=== PATIENT | male | born 1955 | race Caucasian/White ===

== ENCOUNTER 2024-01-01 06:05 | Outpatient (RCR) | payer OTHER, SELFPAY | END 2024-01-01 23:59 | disposition home or self-care (01) | LOC: RPT 06:05 | PROVIDERS: ATTENDING PHYSICIAN Physician Assistant Surgical; FAMILY PHYSICIAN Family Medicine | DX: S42.231D 3-part fracture of surgical neck of right humerus, subsequent encounter for fracture with routine healing (principal) | CPT/HCPCS: 97110; 97140; 97162 ==

== ENCOUNTER 2024-01-29 09:24 | Outpatient (RCR) | payer OTHER, SELFPAY | END 2024-01-29 23:59 | disposition home or self-care (01) | LOC: RPT 09:24 | PROVIDERS: ATTENDING PHYSICIAN Physician Assistant Surgical; FAMILY PHYSICIAN Family Medicine | DX: S42.231D 3-part fracture of surgical neck of right humerus, subsequent encounter for fracture with routine healing (principal); Z73.6 Limitation of activities due to disability; M62.81 Muscle weakness (generalized) | CPT/HCPCS: 97010; 97110; 97140 ==

== ENCOUNTER 2024-03-04 06:20 | Outpatient (RCR) | payer OTHER, SELFPAY | END 2024-03-04 23:59 | disposition home or self-care (01) | LOC: RPT 06:20 | PROVIDERS: ATTENDING PHYSICIAN Physician Assistant Surgical; FAMILY PHYSICIAN Family Medicine | DX: S42.231D 3-part fracture of surgical neck of right humerus, subsequent encounter for fracture with routine healing (principal); Z73.6 Limitation of activities due to disability; M62.81 Muscle weakness (generalized) | CPT/HCPCS: 97010; 97110; 97140 ==

== ENCOUNTER 2024-07-28 15:31 | Inpatient (IN) | payer OTHER, SELFPAY ==
[2024-07-28] VITALS (14 sets, daily range): BP systolic 90–137; BP diastolic 46–102; BMI 37.6
[2024-07-28] MEDS: LOPRESSOR 5 MG IV (11:52)
[2024-07-28 11:56] LABS: % Basophils 0.4 % (0-2); % Eosinophils 1.4 % (0-6); % Immature Granulocytes 0.6 % (0-0.5); % Lymphocytes 19.1 % (20.5-51.1); % Monocytes 13.7 % (1.7-9.3); % Neutrophils 64.8 % (42.2-75.2); Absolute Basophils 0.1 10^3/uL (0-0.2); Absolute Eosinophils 0.2 10^3/uL (0-0.7); Absolute Immature Granulocytes 0.1 10^3/uL (0-0.05); Absolute Lymphocytes 2.3 10^3/uL (1.2-3.4); Absolute Monocytes 1.7 10^3/uL (0.1-0.6); Absolute Neutrophils 7.8 10^3/uL (1.4-6.5); Hematocrit 47.3 % (39.0-52.0); Hemoglobin 16.3 g/dL (13.0-18.0); Mean Corp Hgb Conc. 34.5 g/dL (33.0-37.0); Mean Corpuscular Hgb 29.4 pg (27.0-31.0); Mean Corpuscular Volume 85.2 fL (80.0-94.0); Mean Platelet Volume 10.2 fL (7.4-10.4); Nucleated Red Blood Cells % 0 % (-); Platelet Count 212 10^3/uL (130-400); Red Blood Cell Count 5.55 10^6/uL (4.70-6.10); Red Cell Dist. Width 13.8 % (11.5-14.5)
[2024-07-28 12:07] LABS: ALT (SGPT) 30 U/L (0-50); AST (SGOT) 19 U/L (17-59); Albumin 3.9 g/dl (3.5-5.0); Alkaline Phosphatase 88 U/L (38-126); Blood Urea Nitrogen 18 mg/dl (9-20); Calcium 9.2 mg/dl (8.4-10.2); Carbon Dioxide 26 mmol/L (22-30); Chloride 104 mmol/L (98-107); Estimated Creatinine Clearance 91 ml/min; Glucose 119 mg/dl (70-99); Potassium 4.7 mmol/L (3.5-5.1); Sodium 137 mmol/L (135-145); Total Bilirubin 1.2 mg/dl (0.2-1.3); Total Protein 6.7 g/dl (6.3-8.2); eGFR > 60.00
[2024-07-28 12:27] LABS: D-Dimer 0.48 ug/mlFEU (0.00-0.50)
[2024-07-28 12:44] LABS: Troponin I 0.098 ng/ml
[2024-07-28] MEDS: CARDIZEM 20 MG IV (13:00)
[2024-07-28 13:24] LABS: Magnesium 2.1 mg/dl (1.6-2.3)
[2024-07-28] MEDS: CARDIZEM 125 IV (13:33)
--- NOTE | 2024-07-28 13:41 | ED.GENMED ---
History of Present Illness
General
Chief Complaint: Heart Rate Problem
Source: patient
Exam Limitations: none
Time Seen by Provider: 07/28/24 11:45
Nursing documentation reviewed up to this point in time: agreed with
History of Present Illness
History of Present Illness:
Pt presents to ED from primary care physician's office due to increased HR. Pt states that he was being evaluated at PCP office due to fatigue over the past 3 days. Prior to onset of symptoms, pt reports brief right sided CP after moving salt down
to his basement, along with sob. Since then sob and fatigue have persisted. Denies dizziness/palpitations/nausea/diaphoresis. Denies recent travel or surgery. Pt is an ex smoker and drinks alcohol socially. Of note, pt reports URI symptoms 3 weeks
which required abx tx with resolution.
Past History
Past History
ED Past Medical History: GERD and Other (Eczema)
ED Past Surgical History: Other (Gynecomastia surgery)
Social History
Tobacco: Smoker
Alcohol: Occasional
Drug: None
Personal: Single
Living: other (With girlfriend)
Review of Systems
Review of Systems
Allergies reviewed?: Yes
Constitutional: Reports fatigue
EENT: Reports no symptoms
Respiratory: Reports trouble breathing
Cardiac: Reports no symptoms
ABD/GI: Reports no symptoms
Musculoskeletal: Reports no symptoms
Skin: Reports no symptoms
Neurological: Reports no symptoms
Phy Exam
Physical Exam
Physical Exam:
General: well appearing male, in no acute distress. afebrile. tachycardic.
Heent: nc/at. eomi
Lungs: cta.
Heart: tachycardic. no mumur.
Abd: soft and nontender
Neuro: aao x 3. no focal neurological deficit.
Ext: no edema
Psych: pleasant and cooperative
Scores
[id number] Score for Afib Stroke Risk
Age in Years (65=0, 65-74=1, >/=75=2): 65-74
Sex (Female=+1): Male
Congestive Heart Failure History (Yes=+1): No
Hypertension History (Yes=+1): No
Stroke/TIA/Thromboembolism History (Yes=+2): No
Vascular Disease History (Yes=+1): No
Diabetes Mellitus (Yes=+1): No
Score: 1
Anticoagulation Recommendations: Consider anticoagulation (as validated in nonvalvular fib)
Course
Orders/Labs/Results
Orders:
Orders
07/28/24
Electrocardiogram (*1) Stat
Comment: DONE EMR
07/28/24 11:13
Electrocardiogram (*1) Urgent
Reason for Study: Chest Pain
EKG- Treatment ONCE
07/28/24 11:43
Complete Blood Count/With Diff Urgent
Comprehensive Metabolic Panel Urgent
Magnesium Urgent
Comment: ADD
TSH Reflex To Free T4 Urgent
Comment: ADD
07/28/24 11:50
Metoprolol [Lopressor] 5 mg .ROUTE .STK-MED ONE
07/28/24 11:52
Metoprolol [Lopressor] 5 mg IV NOW STA
07/28/24 11:59
Add On- LAB Urgent
Tests Added?: magnesium, TSH to reflex Free T4
07/28/24 12:03
D-Dimer Urgent
NT-proBNP Urgent
Comment: ADD ON
PTT Urgent
Comment: ADD ON
Troponin I Urgent
07/28/24 12:37
Diltiazem HCl [Cardizem] 20 mg IV NOW STA
07/28/24 12:45
Diltiazem 125 mg/125 ml Nss [Cardizem] 125 mg in 125 ml IV PER PROTOCOL
Initial dose in mg/hr, then titrate:: 5
Titrate to keep:: Heart rate 80-100 bpm
Titrate by mg/hr:: 5 mg/hr
Frequency of titrations (minutes):: 15
Maximum dose in mg/hr:: 15
07/28/24 14:14
Heparin 4,000 units IV NOW STA
Nursing to Place Non Medication Order As Directed
Physician Order: PTT 6 hours after initial start of Heparin infusion
Above order entered?: Yes
07/28/24 14:15
Heparin [id number] Units/250 ml 25,000 units in 250 ml IV PER PROTOCOL
Weight to be used for heparin protocol in kilograms (kg):: 119
Protocol:: Cardiac Tx/Acute Coronary
PTT Goal Range to be used:: PTT 73 to 111 seconds
Order type:: Initial
INITIAL Infusion Dose (UNITS/KG/hr) & then follow protocol:: 12 units/kg/hr
Infusion Dose in UNITS/hr & then follow protocol (UNITS/hr):: 1,000
INFUSION RATE in mL/hr & then follow protocol (mL/hr):: 10
PTT less than or equal to 64 seconds:: Increase rate by 200 units/hr (+ 2 mL/hr)
PTT 64.1 to 72.9 seconds:: Increase rate by 100 units/hr (+ 1 mL/hr)
PTT 73 to 111 seconds:: Target Range. No change in rate.
PTT 111.1 to 130.9 seconds:: Decrease rate by 100 units/hr (- 1 mL/hr)
PTT 131 to 199.9 seconds:: HOLD for 1 hr. Then decrease rate by 200 units/hr (- 2 mL/hr)
PTT greater than or equal to 200 seconds:: HOLD for 2 hrs & Notify Provider. Then decrease by 200 units/hr (-
2 mL/hr)
Lab follow-up:: Each change, PTT q6h until 2 consecutive are therapeutic. Then PTT
daily.
07/28/24 14:29
Add On- LAB Stat
Tests Added?: PTT
07/28/24 14:57
Admit/Transfer Patient As Directed
Co-Sign Provider:
Level of Care: Inpatient admission
Assign to:: IVU
Physician / Group: tiffanie
Diagnosis: new onset atrial fib
Reason for Hospitalization: new onset atrial fib
NSTEMI
Expected length of stay greater than two midnights?: Yes
ELOS- Estimated Length of Stay in days: 3
I certify the patient meets the requirements for IP care: Yes
PRN Pain Medication Management As Directed
May give lesser potent ordered pain med per pt: Yes
preference::
Protocol:: Medication orders for pain may be administered in a
manner that supports deferring to patient preference
when the pt is:
- Requesting an ordered lesser potent pain medication.
Least to most potent pain medications are defined
as: acetaminophen < NSAID < tramadol < opioids
(morphine, oxycodone, hydromorphone).
- Requesting a lesser dose of the same medication IF
ORDERED.
- Requesting a less intrusive route of administration
if both routes are prescribed by the provider (PO <
IV).
07/28/24 14:58
Code Status As Directed
Resuscitation Status: Full Code
Abnormal Lab Results
07/28/24 07/28/24
11:43 12:03
WBC 12.0 H 10^3/uL
(4.8-10.8)
Abs Immat Gran (auto) 0.1 H 10^3/uL
(0-0.05)
Absolute Neuts (auto) 7.8 H 10^3/uL
(1.4-6.5)
Absolute Monos (auto) 1.7 H 10^3/uL
(0.1-0.6)
Immature Gran % 0.6 H %
(0-0.5)
Lymphocytes % 19.1 L %
(20.5-51.1)
Monocytes % 13.7 H %
(1.7-9.3)
Glucose 119 H mg/dl
(70-99)
Troponin I 0.098 H* ng/ml
07/28/24 11:43
07/28/24 11:43
Vital Signs
Initial and Last Documented VS:
Initial Vital Signs
Temp Pulse Resp BP Pulse Ox
97.9 F 160 20 137/102 99
07/28/24 11:15 07/28/24 11:15 07/28/24 11:15 07/28/24 11:15 07/28/24 11:15
Last Documented Vital Signs
Temp Pulse Resp BP Pulse Ox
97.9 F 84 23 101/69 94
07/28/24 11:15 07/28/24 15:00 07/28/24 15:00 07/28/24 15:00 07/28/24 15:00
MDM/Problems Addressed
MDM/Problems Addressed:
Pt presented to ED initially in SVT. As patient was asymptomatic with narrow complex tachycardia, decision made to initially treat patient with Lopressor 5 mg IV, which did not affect his heart rate. Patient subsequently given Cardizem bolus and
started on infusion, with improvement in heart rate. Subsequent EKG reveals rate controlled atrial fibrillation. Mildly elevated troponin noted.
Patient evaluated by cardiology, Dr. Crook. Decision made to admit patient to hospitalist service on heparin protocol, along with Cardizem infusion, for further evaluation and treatment.
Critical care statement: A total of 40 minutes of critical care time was provided for this patient. This includes management of unstable vital signs, evaluation of the patient at bedside, reviewing the patient's pertinent medical records, discussion
with consultants, review of old EKGs and review of pertinent medical records. This time with separate from time utilized to perform the aforementioned documented procedures
*Critical Care Note
Total Time (30-74mins, 75-104mins- exclusive of procedures): 40 min
ED Attending Note
-
Portions of this chart may have been created with voice recognition software.� Occasional wrong word or��sound alike� substitutions may have occurred due to the inherent limitations of voice recognition software.
Discharge Plan
Departure
Patient Disposition: Admit
Date of Disposition: 07/28/24
Time of Disposition: 13:59
Admit to: Telemetry
Presentation/result/management discussed w/ accepting MD/DO: Hospitalist
Discharge Problem:
New onset atrial fibrillation, Abnormal cardiac enzyme level
Interventions
Interventions:
*Risk Screen - Suicide Last Done: 07/28/24 11:15
*General Assessment Last Done: 07/28/24 11:15
*Neglect/Abuse Screening Last Done: 07/28/24 11:15
*ED- Fall Risk Assessment Last Done: 07/28/24 11:39
*ED COVID-19 Vaccine History Last Done: 07/28/24 11:39
--- NOTE | 2024-07-28 14:33 | HPS.HSE ---
Family Physician
-
Family Physician: Nasim Card
Chief Complaint
-
Week lightheaded
History of Present Illness
69-year-old with past medical history for hypertension presented to us with generalized weakness for past few days. Patient stated he was dealing with upper respiratory infection since May. Recently was put on steroids, Mucinex and steroids.
He finished a course of steroids 3 days ago. Patient feels better with upper respiratory infection. For past few days, he was noted to have lightheaded and weak, patient noted to have a chest pain on Sunday morning when he was moving salt bag
and yesterday also he had chest pain while eating breakfast. today he was lightheaded. he stated some sob and felt like his heart was racing. he went to PCP today morning for evaluation and noted to have heart rate of 160. Patient denied any
abdominal pain, nausea, vomiting or diarrhea. Patient denied dysuria hematuria.
Upon arrival he was noted in A-fib he was also noted to have, elevated troponin. Patient was initiated on Cardizem and heparin drip admitted for further management.
Medical History
Past Medical History
Past Medical History: Reports Other
Additional Past Medical History:
Psoriasis
Cavernous sinus thrombosis
Hypertension
Acid reflux
Chronic calculus cholecystitis
Past Surgical History: Reports None
Additional Past Surgical History:
Lap soni
Social History
Tobacco: Former Smoker
Alcohol: Daily
Drug: None
Living: With Family
Family History
Family History: Not pertinent
Allergies / Home Medications
Allergies reflects when Allergies were last updated in [facility].
Home Medications with original date entered in [facility]
Allergy/Medication List:
Allergies
Allergy/AdvReac Type Severity Reaction Status Date / Time
codeine Allergy Nausea/not Verified 07/28/24 11:18
true
allergy
just a
little sick
Home Medications
albuterol sulfate 90 mcg/actuation aerosol inhaler 2 puff inhalation Q4HPRN PRN cough, shortness of breath 07/28/24
amlodipine 5 mg tablet 5 mg PO DAILY Blood Pressure 07/28/24
Review of Systems
-
Constitutional: Reports Fatigue
EENT: Reports No Symptoms
Respiratory: Reports Trouble Breathing
Cardiac: Reports Chest Pain and Palpitations
Abdomen/GI: Reports No Symptoms
: Reports No Symptoms
Musculoskeletal: Reports No Symptoms
Skin: Reports No Symptoms
Neurological: Reports Headache and Weakness
Endocrine: Reports No Symptoms
Hematologic/Lymphatic: Reports No Symptoms
Psych: Reports No Symptoms
Physical Exam
Vital Signs
Vital Signs
Temp Pulse Resp BP Pulse Ox
97.9 F 83 20 116/99 98
07/28/24 11:15 07/28/24 14:00 07/28/24 11:30 07/28/24 13:00 07/28/24 11:22
Physical Exam
General: Well Developed, Well Nourished and No Apparent Distress
HEENT: NormoCephalic, Moist mucous membranes and Atraumatic
Respiratory: Clear
Cardiac: Irregular Rhythm; No Murmur or Rub
GI: Soft, Non Tender, Non Distended and Normal Bowel Sounds; No Organomegaly
Rectal: Deferred by Provider
Musculoskeletal: No Clubbing, No Cyanosis and No Edema
Skin: No Rash
Neuro: AO x 3 and Nonfocal/grossly intact
Psych: Calm
Laboratory Results
-
07/28/24 11:43
07/28/24 11:43
Laboratory Results
Total Bilirubin 1.2 mg/dl (0.2-1.3) 07/28/24 11:43
AST 19 U/L (17-59) 07/28/24 11:43
ALT 30 U/L (0-50) 07/28/24 11:43
Alkaline Phosphatase 88 U/L (38-126) 07/28/24 11:43
Troponin I 0.098 ng/ml H* 07/28/24 12:03
Data Reviewed
-
Lab Data: Labs Reviewed by me
Impression/Plan
-
# New onset A-fib
-On Cardizem drip
-Cardiology consult
-Heparin drip
# Leukocytosis likely stress reaction
-WBC 12.0, likely from steroids
-Patient is afebrile
-Continue to monitor
# Elevated Trop likely NSTEMI
-Trop 0.098
-Keep patient n.p.o. after midnight for possible cardiac cath in morning
-Trend Trope
-EKG on arrival A-fib acute ABG with supraventricular tachycardia, nonspecific ST and T wave abnormality,
# Essential hypertension
-Norvasc continued with hold parameters
# DVT prophylaxis
-On heparin drip
# CODE STATUS
-Full code
[2024-07-28 14:54] LABS: APTT 33.5 Sec (23.4-35.0)
[2024-07-28] MEDS: HEPARIN 4000 UNITS IV (14:56)
[2024-07-28] MEDS: HEPARIN 25000 UNITS/250 ML IV (14:57)
--- NOTE | 2024-07-28 15:46 | CON.CAR ---
Addendum entered and electronically signed by Javier Crook MD 07/28/24 16:51:
I saw and examined the patient.
The AIRLINE RADIO OPERATOR or PA's note was reviewed and I agree with the note.
Comment: General: Well developed, well nourished in NAD.
Neck: Supple, no JVD, HJR, carotids +2 B/L, no bruits bilaterally.
Heart: Non displaced PMI, Irregular, no murmurs, No S3, S4, no rubs.
Lungs: Clear to auscultation bilaterally, no wheeze, rhonchi, rubs bilaterally,
normal expiratory phase.
Abdomen: Normal bowel sounds, soft, non-tender, non-distended.
Extremities: No clubbing, cyanosis or edema bilaterally.
Neuro: Grossly nonfocal, awake, alert and oriented x3.
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 He had a right-sided chest discomfort and
increasing fatigue over the past few days. He noted discomfort after he had lifted bags of salt 2 days ago. He came to the ER because of progressive fatigue. He is found to be in a rapid tachycardia which may have been an atrial tachycardia. He
is currently in A-fib on IV Cardizem. Cardiology consulted for A-fib and also elevated troponin of 0.098.
Will continue IV heparin. Will consider JW/cardioversion if troponins do not go up further. Given tobacco abuse if troponins remain elevated may need to consider catheterization prior to JW/cardioversion. Check echocardiogram. Discussed in
detail with patient and in room as well as ER doctors. He will need workup for sleep apnea and cut alcohol abuse given they are associated with A-fib. He will need Eliquis prior to discharge.
Original Note:
Consultation
Consultation Request
Date/Time Consultation Requested: 07/28/24
Date/Time Consultation Performed: 07/28/24
Requesting Provider: Dr. Alexander
Performing Provider: Dr. Crook
Reason for Consultation: Chest pressure, elevated Troponin, newly diagnosed Afib with RVR
Medical History
-
History of Present Illness:
Patient came to ER today with complaints of a right sided chest pressure and was found to be in new A-fib prompting admission and cardiology consultation. Patient recalls that on Sunday he was lifting bags of sidewalk salt and started with a
fingertip sized area of chest pain on the right side, he had never had pain like this before. The pain improved, but recurred the following day while at rest. Overall he felt unusually fatigued and had SMITH walking around his home that was new and
different. No edema or bloating. No palpitations. In the ER patient was found to be in A-fib with RVR which is a new diagnosis for him. He has been on warfarin before, but this was for cavernous sinus thrombosis that was discovered when he
presented with a 6th nerve palsy in 2019. At that time they felt that possibly a broken tooth had caused the thrombosis. Patient was on warfarin for at least a year, but no longer taking OAC. No adverse bleeding events while on warfarin.
PMH:
Recent URI illness treated with antibiotics and prednisone by PCP
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
Presenting symptoms were diplopia
Possible broken tooth as the cause for thrombosis
Previously tolerated warfarin OAC in the setting of cavernous sinus thrombosis 2018
HTN
Daily EtOH consumption
Past Medical History
Past Medical History: Other (in HPI)
Past Surgical History: Cholecystectomy and Other (gynecomastia surgery)
Social History
Tobacco: Former Smoker (quit smoking 1 ppd 6 weeks ago)
Alcohol: Daily
Drug: None
Personal:
Living: With Family
Family History
Family History: Other (no FH of Afib)
Allergies / Home Medications
Allergy/AdvReac Type Severity Reaction Status Date / Time
codeine Allergy Nausea/not Verified 07/28/24 11:18
true
allergy
just a
little sick
�Medication �Instructions �Recorded �Confirmed �Type
albuterol sulfate 90 mcg/actuation 2 puff inhalation Q4HPRN PRN 07/28/24 07/28/24 History
aerosol inhaler cough, shortness of breath
amlodipine 5 mg tablet 5 mg PO DAILY Blood Pressure 07/28/24 07/28/24 History
Review of Systems
-
History Source: Patient and Family ()
All other systems: Negative unless noted
Physical Exam
Vital Signs
Temp Pulse Resp BP Pulse Ox
97.9 F 84 23 101/69 94
07/28/24 11:15 07/28/24 15:00 07/28/24 15:00 07/28/24 15:00 07/28/24 15:00
GEN: NAD. AAOx3
HEENT: EOMI, MMM, wearing glasses
LUNGS: RA. CTA B/L without wheeze
CV: Afib on tele. Irreg irreg, S1/S2, no murmur
ABD: soft, BS+, NT, ND
EXT: No clubbing, cyanosis, lesions or edema B/L
NEURO: Gross non-focal
SKIN: Warm, dry and pink. No rash
Lab Results
07/28/24 11:43
07/28/24 11:43
Troponin I 0.098 ng/ml H* 07/28/24 12:03
Impression / Plan
-
PCP: Dr. Wilson
Card: None prior to admission
Impression:
Came to ER with CP and fatigue 07/28/2024
Newly diagnosed A-fib with RVR of unclear duration
Atypical CP
Elevated troponin
Recent URI illness treated with antibiotics and prednisone by PCP
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
Presenting symptoms were diplopia
Possible broken tooth as the cause for thrombosis
Previously tolerated warfarin OAC in the setting of cavernous sinus thrombosis 2018
HTN
Daily EtOH consumption
Echo 05/29/2018: EF 60 to 65%, mild concentric LVH, mild peak/mean 23/12 mmHg, dilated sinus of Valsalva 4.2 cm, normal ascending aorta
Echo 07/28/2024: Study pending
Plan:
-Patient came to ER today with complaints of a right sided chest pressure and was found to be in new A-fib prompting admission and cardiology consultation. Patient recalls that on Sunday he was lifting bags of sidewalk salt and started with a
fingertip sized area of chest pain on the right side, he had never had pain like this before. The pain improved, but recurred the following day while at rest. Overall he felt unusually fatigued and had SMITH walking around his home that was new and
different. No edema or bloating. No palpitations. In the ER patient was found to be in A-fib with RVR which is a new diagnosis for him. He has been on warfarin before, but this was for cavernous sinus thrombosis that was discovered when he
presented with a 6th nerve palsy in 2019. At that time they felt that possibly a broken tooth had caused the thrombosis. Patient was on warfarin for at least a year, but no longer taking OAC. No adverse bleeding events while on warfarin.
-ECG reviewed by me shows A-fib with RVR. Telemetry reviewed by me while in the room shows A-fib with heart rate 80 bpm
-Long talk with patient and his in the room. Remains in A-fib with Cardizem gtt running at 5 mg. Reviewed with patient and that if he fails to spontaneously convert with Cardizem gtt then we can proceed to CV.
-Discussed the pathophysiology and general course of A-fib including the possibility of eventual AAD or ablation therapies. Patient would be agreeable to CV if he fails to spontaneously convert.
-We talked about the importance of OAC and patient would be interested in Eliquis or Xarelto as an alternative to his previous warfarin therapy pending the cost.
-We discussed holding off on CV until he has repeat troponin levels and echo completed. CP is atypical, but was definitely new and unusual for patient. Initial troponin 0.098 and second troponin ordered by me now.
-Check echo
-If troponin levels increase or echo suggest WMA then will consider ischemic evaluation with possible cardiac cath. Reviewed cardiac cath with patient and in broad terms.
-TSH normal 2.43
-Eventual WILTON eval
-Patient is a daily drinker, will continue to discuss risk factor reduction for recurrence of A-fib including decreasing EtOH consumption
[2024-07-28 16:12] LABS: TSH Reflex To Free T4 2.43 uIU/ml (0.47-4.68)
--- NOTE | 2024-07-28 16:51 | W.PN.UPDATE ---
Update Note
Progress Note Update
This is an addendum to H&P written by Julia Nicole on 07/28/2024.� Patient seen and examined independently with REFRACTORY REPAIRER.
69-year-old male past medical history of hypertension presenting with generalized weakness, lightheadedness and weakness, chest pain, shortness of breath over the weekend.� No chest pain currently.
He arrives in new onset A-fib with RVR.
Labs show leukocytosis.� Troponin 0.098.
Cardizem drip started.� Heparin drip started.� Trend troponins, likely nonischemic myocardial injury.� Check chest x-ray, cardiac BNP.� Check echocardiogram.� Cardiology consulted.� N.p.o. past midnight for potential cardiac catheterization tomorrow
if signs of ischemia on on echo.
[2024-07-28 17:12] LABS: NT-proBNP 4660 pg/ml
[2024-07-28 17:45] LABS: Troponin I 0.126 ng/ml
[2024-07-28 20:50] LABS: APTT 38.5 Sec (23.4-35.0)
--- NOTE | 2024-07-28 20:52 | PTCARENOTE ---
patient resting in bed comfortably. AAOx3. denies any pain. mild palpitations at times. cardizem gtt increased to 15 ml/hr. HR 100s. currently HR Afib 80s-90s. bp stable. denies any lightheadedness/dizziness when oob. steady on his feet. mild
dyspnea on exertion noted-patient denies. heparin gtt infusing per protocol. reviewed plan of care with patient and verbalized understanding. answered all questions. NPO at midnight.
[2024-07-28 21:11] LABS: Troponin I 0.126 ng/ml
[2024-07-29] VITALS (8 sets, daily range): BP systolic 100–137; BP diastolic 59–96; BMI 37.4
[2024-07-29 00:23] LABS: Troponin I 0.142 ng/ml
[2024-07-29] MEDS: CARDIZEM 125 IV (02:04)
[2024-07-29 03:30] LABS: Hematocrit 39.6 % (39.0-52.0); Hemoglobin 13.7 g/dL (13.0-18.0); Mean Corp Hgb Conc. 34.6 g/dL (33.0-37.0); Mean Corpuscular Hgb 29.7 pg (27.0-31.0); Mean Corpuscular Volume 85.7 fL (80.0-94.0); Mean Platelet Volume 10.5 fL (7.4-10.4); Platelet Count 161 10^3/uL (130-400); Red Blood Cell Count 4.62 10^6/uL (4.70-6.10); Red Cell Dist. Width 13.9 % (11.5-14.5); White Blood Cell Count 10.6 10^3/uL (4.8-10.8)
[2024-07-29 03:33] LABS: APTT 55.7 Sec (23.4-35.0)
[2024-07-29 03:43] LABS: HDL Cholesterol 73 mg/dl; LDL Cholesterol, Calculated 93 mg/dl; Total Cholesterol 181 mg/dl (50-199); Triglyceride 79 mg/dl (10-149); Very Low Density Lipoprotein 15 mg/dl (0-30)
[2024-07-29 03:48] LABS: Troponin I 0.129 ng/ml
[2024-07-29] MEDS: NORVASC 5 MG PO (07:55)
--- NOTE | 2024-07-29 08:17 | W.PN.CARDCBS ---
Addendum entered and electronically signed by Javier Crook MD 07/29/24 11:27:
I saw and examined the patient.
The DEVOPS or PA's note was reviewed and I agree with the note.
Comment: General: Well developed, well nourished in NAD.
Neck: Supple, no JVD, HJR, carotids +2 B/L, no bruits bilaterally.
Heart: Non displaced PMI, irregular, no murmurs, No S3, S4, no rubs.
Lungs: Scattered rhonchi
Extremities: No clubbing, cyanosis or edema bilaterally.
Neuro: Grossly nonfocal, awake, alert and oriented x3.
Given elevated troponins and significant tobacco abuse as well as reduced ejection fraction 45% on echo, will arrange for cardiac catheterization. I explained the risk and benefits of catheterization and possible stenting in detail with patient as
well as . Total visit time 52 minutes. Consider JW/cardioversion in a.m. Of note aortic stenosis has progressed from mild to moderate since 2019 and will need to be followed.
Original Note:
Today's Communication / Plan
-
C today
JW/CV in AM pending cath
Impression / Plan
-
PCP: Dr. Wilson
Card: None prior to admission
Impression:
Came to ER with CP and fatigue 07/28/2024
Newly diagnosed A-fib with RVR of unclear duration
Atypical CP
Elevated troponin
Newly diagnosed CM, unclear if ischemic or nonischemic, EF 45% by echo 07/30/23
Moderate peak/mean 33/22 mmHg and SOFI 1.1 cm sq by echo 07/30/23
Recent URI illness treated with antibiotics and prednisone by PCP
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
Presenting symptoms were diplopia
Possible broken tooth as the cause for thrombosis
Previously tolerated warfarin OAC in the setting of cavernous sinus thrombosis 2018
HTN
Daily EtOH consumption
Echo 05/29/2018: EF 60 to 65%, mild concentric LVH, mild peak/mean 23/12 mmHg, dilated sinus of Valsalva 4.2 cm, normal ascending aorta
Echo 07/28/2024: EF 45%, global hypokinesis, moderate peak/mean 33/22 mmHg and SOFI 1.1 cm SQ, trace aortic regurgitation, mildly dilated aortic root, sinus of Valsalva 4.2 cm, sinotubular junction 2.7 cm, ascending aorta 3.5 cm and aortic arch not
well-visualized, compared to echo 05/2017 the AAS has increased from mild to moderate and EF is now down to 45%
Plan:
-Uneventful night, troponin peaked at 0.142. No recurrence of atypical right sided CP
Echo as noted above with EF newly reduced at 45% and global hypokinesis. Had mention the chance of cardiac cath to patient on 07/28/2024 and we discussed that again 07/29/2024 and he is agreeable
-proBNP was 4660 on 07/28/2024. Patient was not taking diuretic prior to admission. Await results of LHC and if LVEDP is elevated we will consider an attempt at IV diuresis. CXR did not suggest CHF.
-Heparin gtt has been running since admission
-Aspirin 324 mg chewable now, ordered by me
-Patient remains in A-fib on telemetry reviewed by me which is a new diagnosis this admission. Cardizem gtt now running at 10 mg
-Outpatient dose of amlodipine 5 mg daily is on hold while on Cardizem drip
-Long talk with patient and his in the room 07/28/2024, we reviewed that if he fails to spontaneously convert with Cardizem gtt then we can proceed to CV. Pending cardiac cath we will plan on likely JW/CV on 07/30/2024
-Discussed the pathophysiology and general course of A-fib including the possibility of eventual AAD or ablation therapies.
-We talked about the importance of OAC and patient would be interested in Eliquis or Xarelto as an alternative to his previous warfarin therapy pending the cost. Tasked to CM to check on cost of Eliquis 5 mg BID sent by me
-TSH normal 2.43
-Eventual WILTON eval
-Patient is a daily drinker, will continue to discuss risk factor reduction for recurrence of A-fib including decreasing EtOH consumption
HPI: Patient came to ER today with complaints of a right sided chest pressure and was found to be in new A-fib prompting admission and cardiology consultation. Patient recalls that on Sunday he was lifting bags of sidewalk salt and started
with a fingertip sized area of chest pain on the right side, he had never had pain like this before. The pain improved, but recurred the following day while at rest. Overall he felt unusually fatigued and had SMITH walking around his home that was
new and different. No edema or bloating. No palpitations. In the ER patient was found to be in A-fib with RVR which is a new diagnosis for him. He has been on warfarin before, but this was for cavernous sinus thrombosis that was discovered when
he presented with a 6th nerve palsy in 2018. At that time they felt that possibly a broken tooth had caused the thrombosis. Patient was on warfarin for at least a year, but no longer taking OAC. No adverse bleeding events while on warfarin.
Progress Note - Aquatic Scientist
Subjective
Date of Service: July 29, 2024
No chest pain overnight
Objective
Labs:
07/29/24 03:00
07/28/24 11:43
Labs
Hgb 13.7 g/dL (13.0-18.0) 07/29/24 03:00
Hct 39.6 % (39.0-52.0) 07/29/24 03:00
Plt Count 161 10^3/uL (130-400) D 07/29/24 03:00
APTT 55.7 Sec (23.4-35.0) H 07/29/24 03:00
Sodium 137 mmol/L (135-145) 07/28/24 11:43
Potassium 4.7 mmol/L (3.5-5.1) 07/28/24 11:43
BUN 18 mg/dl (9-20) 07/28/24 11:43
Creatinine 1.0 mg/dL (0.7-1.3) 07/28/24 11:43
Glucose 119 mg/dl (70-99) H 07/28/24 11:43
Troponins
07/28/24 07/28/24 07/28/24
12:03 17:04 20:28
Troponin I 0.098 H* 0.126 H* D 0.126 H*
07/28/24 07/29/24
23:38 03:00
Troponin I 0.142 H* 0.129 H*
Vital Signs and I&O:
Vital Signs
Temp Pulse Resp BP Pulse Ox
98.0 F 112 22 134/85 95
07/29/24 06:57 07/29/24 07:55 07/29/24 06:57 07/29/24 07:55 07/29/24 06:57
Vital Signs
Temp Pulse Resp BP Pulse Ox
98.0 F 112 22 134/85 95
07/29/24 06:57 07/29/24 07:55 07/29/24 06:57 07/29/24 07:55 07/29/24 06:57
Intake & Output
07/27/24 07/28/24 07/29/24 07/30/24
06:59 06:59 06:59 06:59
Intake Total 400 / 400
Balance 400 / 400
Physical Exam
Physical Exam
GEN: NAD. AAOx3
HEENT: MMM
LUNGS: RA.
CV: Afib on tele.
EXT: No edema B/L
NEURO: Gross non-focal
SKIN: No rash
[2024-07-29 09:13] LABS: Glycohemoglobin (HgbA1c) 6.1 % (4.0-5.6)
[2024-07-29] MEDS: LOW STRENGTH ASPIRIN 324 MG PO (09:23)
[2024-07-29] MEDS: HEPARIN 25000 UNITS/250 ML IV ×2 (09:31→22:42)
--- NOTE | 2024-07-29 09:54 | CARDSERVLU ---
Echocardiogram with Lumason completed after protocol screening completed. Allergies verified.
Patent IV site: __RAC___
IV site flushed with 0.9% NaCl pre and post administration.
Diluted bolus method utilized to enhance visualization of ventricular cavazos.
Total volume given: ___3_ mL
Patient tolerated all procedures well without complications.
[2024-07-29 11:03] LABS: APTT 57.3 Sec (23.4-35.0)
--- NOTE | 2024-07-29 11:21 | CM ---
Chart reviewed. Patient is independent of ADLS, lives with his in a 2 STH, 1st floor set up, ramp access into the house, 0 DME. Plan is for the patient to return home. CM to follow
--- NOTE | 2024-07-29 12:27 | W.PN.HOSP.TC ---
Today's Communication/Plan
-
cath today
followed by JW/DCCV
Cont cardizem/hep
check lipid panel and a1c
Assessment / Plan
Assessment / Plan
General: Well Developed, Well Nourished and No Apparent Distress
HEENT: NormoCephalic, Moist mucous membranes and Atraumatic
Respiratory: Clear
Cardiac: Irregular Rhythm; No Murmur or Rub
GI: Soft, Non Tender, Non Distended and Normal Bowel Sounds; No Organomegaly
Rectal: Deferred by Provider
Musculoskeletal: No Clubbing, No Cyanosis and No Edema
Skin: No Rash
Neuro: AO x 3 and Nonfocal/grossly intact
Psych: Calm
# NSTEMI
- on hep gtt
-ECHO pending
-plan for cardiac cath later today
# New onset A-fib
-On Cardizem drip
-Heparin drip for now.
-eventual transition to DOAC
-TTE pending
-if no improvement in HR may require JW/DCCV
# Leukocytosis likely stress reaction
-WBC 12.0, likely from steroids
-Patient is afebrile
-Continue to monitor
# Essential hypertension
-dc norvasc as already on CCB Cardizem
# DVT prophylaxis
-On heparin drip
# CODE STATUS
-Full code
d/w with cardiology
Anticipated Discharge: > 48 hours
Subjective/Interval History
-
Date of Service: July 29, 2024
denies chest pain
remains in afib
Objective Data
-
Labs:
Laboratory Results
07/29/24 07/29/24 07/29/24
03:00 10:35 17:00
WBC 10.6
Hgb 13.7
Hct 39.6
Plt Count 161 D
APTT 55.7 H 57.3 H Pending
Vital Signs:
Vital Signs
Temp Pulse Resp BP Pulse Ox
98 F 96 22 133/90 94
07/29/24 10:39 07/29/24 11:00 07/29/24 10:39 07/29/24 10:38 07/29/24 10:39
I&O
07/28/24 07/29/24 07/30/24
06:59 06:59 06:59
Intake Total 400 / 400
Balance 400 / 400
Data Reviewed
-
Total Time Spent with Patient (in minutes): 55
--- NOTE | 2024-07-29 13:02 | PTCARENOTE ---
Report called to the cardiac cath lab manager
[2024-07-29 15:24] LABS: ACT-LR - POC 274 Seconds (116-155)
[2024-07-29 15:41] LABS: ACT-LR - POC 297 Seconds (116-155)
--- NOTE | 2024-07-29 17:48 | ITS.CL.CATH ---
Embossograph Operator - Catheterization
Cardiac Catheterization
Procedure Report:
LEFT HEART CATHETERIZATION AND CORONARY INTERVENTION
Date of Procedure: July 29, 2024
Referring: Javier Crook
PROCEDURES:
1. Left heart catheterization, coronary angiogram.
2. Ultrasound-guided access.
3. Successful IVUS guided coronary artery intervention of a percutaneous 75 to 80% proximal OM1 stenosis with one 2.75 x 18 mm Medtronic [place] drug-eluting stent, postdilated using IVUS guidance with a 2.75 x 15 mm NC balloon at 18 gladis with an
excellent angiographic result.
4. Intravascular ultrasound.
5. Moderate sedation.
INDICATION: Concern for acute coronary syndrome.
ACCESS: Right radial artery, 6 [place] sheath, under ultrasound guidance.
Ultrasound was utilized for vascular access. The radial artery was visualized under ultrasound, and the vessel was patent and pulsatile. An image was stored permanently in the patient's medical record. Under direct ultrasound guidance, a 6 [place]
sheath was inserted into the artery using a micropuncture kit through a modified Seldinger technique.
HEMODYNAMICS : (mmHg)
AO (s/d) : 111/69
LV (s/d) : 119/13
LVEDP : 17
CORONARY FINDINGS
DOMINANCE: Right
LEFT MAIN: The left main artery is a large-caliber vessel which gives rise to the left anterior descending artery and the left circumflex artery. There is mild diffuse atherosclerotic plaque.
LEFT ANTERIOR DESCENDING: The left anterior descending artery is a medium to large caliber vessel which gives rise to multiple small to medium caliber diagonal branches as it courses to the anterior interventricular groove and wraps around the apex.
Mid LAD at the level of the takeoff of D2 has eccentric 30 to 40% stenosis. Otherwise there is mild diffuse atherosclerotic plaque.
CIRCUMFLEX: The left circumflex artery is a medium caliber vessel which gives rise to 1 major obtuse marginal branch there is 75 to 80%. Focal stenosis in the proximal portion of OM1 which was intervened on as noted below.
RIGHT CORONARY ARTERY: The right coronary artery is a medium to large caliber, dominant vessel which gives rise to the right posterior descending artery and the right posterolateral system. There is mild diffuse atherosclerotic plaque.
CORONARY INTERVENTION: The left coronary artery was selectively engaged using a EBU 3.75 guide catheter. Additional heparin was given to maintain a therapeutic ACT throughout the case. With some difficulty we navigated a 190 cm 0.014' BMW coronary
wire successfully into the distal portion of OM1. The lesion was predilated using a 3.0 x 12 mm semicompliant balloon with good expansion. It was subsequently stented using a 2.75 x 18 mm Medtronic [place] drug-eluting stent. Then using [employer] IVUS
Republic eye catheter we postdilated the stent with a 2.75 x 15 mm NC balloon at 18 gladis with an excellent angiographic and IVUS based result without evidence of proximal or distal stent edge dissections. The stent was well opposed and well-expanded.
Patient was loaded with 600 mg of Plavix at the end of the case. He tolerated the procedure well without any acute complications.
SEDATION: 77 minutes of procedural sedation was utilized. An independent medical record librarians teacher was present to assist with and help manage the patient's level of consciousness and physiologic status.
RADIATION SUMMARY: Fluoro Time (min): 17.5, Dose (mGy): 1518.88, DAP (Gy.cm2) : 117.93
Closure Device: Vascular band over right radial artery, 10 cc of air.
CONCLUSIONS
1. Successful IVUS guided coronary artery intervention of a percutaneous 75 to 80% proximal OM1 stenosis with one 2.75 x 18 mm Medtronic [place] drug-eluting stent, postdilated using IVUS guidance with a 2.75 x 15 mm NC balloon at 18 gladis with an
excellent angiographic result.
2. Mildly elevated LVEDP at 17 mmHg.
RECOMMENDATIONS
1. Uninterrupted dual antiplatelet therapy with daily baby aspirin and Plavix 75 mg for at least 1 week in addition to the Eliquis which she will require for his new onset atrial fibrillation. After 1 week plan would be to maintain Eliquis and
Plavix for at least 1 year.
2. Wean radial band per protocol.
3. Aggressive management of cardiovascular risk factors.
4. Patient will be set up for likely JW cardioversion tomorrow morning.
5. Referral for outpatient cardiac rehab.
Copy to: Javier Crook MD
Jena Villegas MD, [facility], [facility]
[2024-07-29] MEDS: LIPITOR 40 MG PO (18:44)
--- NOTE | 2024-07-29 18:56 | PTCARENOTE ---
~3922-9867: Patient AOx4, Afib on tele 80s-90s at rest, 100s-120s with movement on RA. Patient denies pain at this time. Currently NPO for [facility] this afternoon. Bedside ECHO completed. Heparin gtt and cardizem gtt infusing per order. All needs met at
this time, call mojica within reach.
~1795-6905: Heparin gtt titrated according to PTT result per protocol.
~2141-0214: Patient awaiting clinical laboratory service teacher procedure, remains NPO.
~1415: Patient taken to clinical laboratory service teacher via bed by clinical laboratory service teacher team.
~1600: Patient back form clinical laboratory service teacher. R radial approach, TR band in place. peripheral neuro checks completed and education provided to patient to not use limb at this time for bleeding risk. All needs met at this time, call mojica within reach.
~4993-2310: Patient resting in bed. VSS at this time.
~3875-7116: Air removed from TR band per protocol. Site with no signs of oozing at this time. SpO2 dipped to 87-89% on RA while sleeping, placed on 2L NC. All needs met, call mojica within reach.
--- NOTE | 2024-07-29 21:12 | PTCARENOTE ---
Patient received at change of shift resting in the bed. Diltiazem gtt infusing at 10mg/hr. Right radial TR band intact, 2cc of air taken out prior to TR band being removed per order. Gauze and tegaderm applied to right radial site. Radial pulse
palpable. Patient on 2L NC, oxygen saturation 98%. Patient denies chest pain. Initially patient was afib on the monitor but at approximately 1956 the patient appears to have converted to SR with PACs. An ECG was completed which also demonstrated SR.
Plan of care discussed with patient. Call mojica within reach. Care ongoing.
[2024-07-30 02:30] VITALS: BMI 37.2
[2024-07-30 02:41] VITALS: BP 130/71
[2024-07-30 04:52] LABS: Hemoglobin 13.4 g/dL (13.0-18.0); Mean Corp Hgb Conc. 34.4 g/dL (33.0-37.0); Mean Corpuscular Hgb 29.5 pg (27.0-31.0); Mean Corpuscular Volume 85.7 fL (80.0-94.0); Mean Platelet Volume 10.6 fL (7.4-10.4); Platelet Count 167 10^3/uL (130-400); Red Blood Cell Count 4.55 10^6/uL (4.70-6.10); Red Cell Dist. Width 13.9 % (11.5-14.5); White Blood Cell Count 9.2 10^3/uL (4.8-10.8)
[2024-07-30 05:10] LABS: APTT 42.3 Sec (23.4-35.0)
[2024-07-30 05:17] LABS: Blood Urea Nitrogen 16 mg/dl (9-20); Calcium 8.5 mg/dl (8.4-10.2); Carbon Dioxide 25 mmol/L (22-30); Chloride 107 mmol/L (98-107); Estimated Creatinine Clearance 114 ml/min; Glucose 117 mg/dl (70-99); Potassium 4.4 mmol/L (3.5-5.1); Sodium 136 mmol/L (135-145); eGFR > 60.00
[2024-07-30 07:28] VITALS: BP 111/58
[2024-07-30] MEDS: TOPROL XL 25 MG PO (08:09)
[2024-07-30] MEDS: ELIQUIS 5 MG PO (08:09)
[2024-07-30] MEDS: LOW STRENGTH ASPIRIN 81 MG PO (08:09)
[2024-07-30] MEDS: PLAVIX 75 MG PO (08:09)
--- NOTE | 2024-07-30 09:04 | PTCARENOTE ---
pt is AOx3, no complaints of pain or discomfort. Heparin and cardizem gtt stopped per Donna Aggarwal PA-C. Resumed pt diet. Independent OOB. Pt updated on plan. Call mojica within reach.
[2024-07-30 11:22] VITALS: BP 125/80
--- NOTE | 2024-07-30 11:22 | W.PN.HOSP.TC ---
Today's Communication/Plan
-
awaiting cath report
GDMT
cards recs
tentative dc later today?
Assessment / Plan
Assessment / Plan
General: Well Developed, Well Nourished and No Apparent Distress
HEENT: NormoCephalic, Moist mucous membranes and Atraumatic
Respiratory: Clear
Cardiac: Irregular Rhythm; No Murmur or Rub
GI: Soft, Non Tender, Non Distended and Normal Bowel Sounds; No Organomegaly
Rectal: Deferred by Provider
Musculoskeletal: No Clubbing, No Cyanosis and No Edema
Skin: No Rash
Neuro: AO x 3 and Nonfocal/grossly intact
Psych: Calm
# NSTEMI
-off hep gtt
-ECHO 45% Global hypokineses.
-awaiting cath report but started on asa/plavix
# New onset A-fib
-converted to NSR
-Started on toprol and eliquis
#Ischemic cardiomyopathy
#Likely Acute HFpEF
-Moderate
-Await cath report
-GDMT -cont asa/statin/bb. Can consider low dose ACEI/ARB if BP can tolerate it.
-CM for cost of SGLT2 inhibitor
# Leukocytosis likely stress reaction
-WBC 12.0, likely from steroids
-Patient is afebrile
-Continue to monitor
-resolved
# Essential hypertension
-cont toprol. can add ACEI/ARB if needed
# DVT prophylaxis- eliquis
# CODE STATUS
-Full code
Anticipated Discharge: Within 24 hours
Subjective/Interval History
-
Date of Service: July 30, 2024
denies chest pain or sob
ambulating in hallway without any difficulty
Objective Data
-
Labs:
Laboratory Results
07/30/24 07/30/24
04:20 11:30
WBC 9.2
Hgb 13.4
Hct 39.0
Plt Count 167
APTT 42.3 H Cancelled
Sodium 136
Potassium 4.4
Chloride 107
Carbon Dioxide 25
BUN 16
Creatinine 0.8
Glucose 117 H
Calcium 8.5
Vital Signs:
Vital Signs
Temp Pulse Resp BP Pulse Ox
98.2 F 83 18 111/58 95
07/30/24 07:28 07/30/24 11:00 07/30/24 07:28 07/30/24 08:09 07/30/24 07:28
I&O
07/29/24 07/30/24 07/31/24
06:59 06:59 06:59
Intake Total 400 / 400 882 / 882
Balance 400 / 400 882 / 882
Data Reviewed
-
Total Time Spent with Patient (in minutes): 55
--- NOTE | 2024-07-30 13:07 | CM ---
Pricing on Jardiance 10mg for a 30 day supply through the patient's [employer] [facility], ID# [id number], is $565. After the patient fulfills his deductible he will be responisble for 24% of cost.
Eliquis 5mg BID is $182 and then he will be responsible for 24% of cost.
Patient is agreeable to cost. I placed both 30 day free coupons in the patient's red discharge folder.
--- NOTE | 2024-07-30 13:49 | W.PN.CARDCBS ---
Addendum entered and electronically signed by Jena Villegas MD 07/30/24 15:38:
I saw and examined the patient.
The Clinical Sales Consultant's note was reviewed and I agree with the note.
Comment: Patient is doing well this morning. No significant complaints. He is status post percutaneous coronary artery intervention for 75 to 80% hazy proximal OM 1 stenosis with 2.75 x 18 mm Medtronic [place] drug-eluting stent, postdilated with a
2.75 x 15 mm NC balloon at 18 gladis based on IVUS guidance with an excellent angiographic and IVUS based result. Troponin peaked this admission at 0.142. He was loaded with 600 mg of Plavix given new onset atrial fibrillation. He was scheduled for
JW cardioversion today for new onset A-fib with RVR in the setting of new ischemic cardiomyopathy with LVEF of 45% however he spontaneously converted to sinus rhythm overnight on July 29, 2024 and he remains in sinus this morning.
On exam patient is out of bed in a chair with no acute distress, awake, alert and oriented x 3, regular rate, normal S1 and S2, no murmurs, rubs or gallops, right radial access site is dressed with dressing which is clean, dry and intact, no
hematoma or bruit, abdomen is obese but otherwise soft, nontender, nondistended with active bowel sounds, no JVD, lungs are clear to auscultation bilaterally, warm extremities without significant edema.
Recommendations:
1. Uninterrupted dual antiplatelet therapy with daily baby aspirin and 75 mg of Plavix along with Eliquis for at least 1 week. At that time plan would be to discontinue daily baby aspirin and continue Plavix and Eliquis for at least 1 year.
2. Goal-directed medical therapy for ischemic cardiomyopathy as tolerated with continued titration as an outpatient.
3. Continued surveillance as an outpatient for moderate aortic stenosis noted on echo this admission.
4. Strongly emphasized importance of continued smoking cessation.
5. Aggressive management of cardiovascular risk factors.
6. Strongly counseled in regards to a high-fiber Mediterranean type heart healthy diet and increasing physical activity with overall goal for weight loss.
7. Outpatient referral for cardiac rehab. They also stop by to see him and he scheduled to start on August 14, 2024 as an outpatient.
All of his questions were answered in significant detail. All of the above was discussed with nursing at bedside. I also spoke about findings and details above with family at bedside yesterday afternoon after heart catheterization.
Jena Villegas MD, [facility], [facility]
Total time spent: 54 minutes
Original Note:
Today's Communication / Plan
-
Discharge to home
All meds e-scribed by me
Outpatient follow-up including cardiac rehab arrange
Impression / Plan
-
PCP: Dr. Wilson
Card: None prior to admission
Impression:
Came to ER with CP and fatigue 07/28/2024
Newly diagnosed A-fib with RVR of unclear duration
Spontaneously converted to SR on the night of 07/29/2024
Atypical CP
NSTEMI, peak troponin 0.142
Newly diagnosed ICM, EF 45% by echo 07/30/23
CAD s/p 2.75 mm [place] AJ to the proximal OM1 07/29/2025
Moderate peak/mean 33/22 mmHg and SOFI 1.1 cm sq by echo 07/30/23
Recent URI illness treated with antibiotics and prednisone by PCP
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
Presenting symptoms were diplopia
Possible broken tooth as the cause for thrombosis
Previously tolerated warfarin OAC in the setting of cavernous sinus thrombosis 2018
HTN
Daily EtOH consumption
Prediabetes
Echo 05/29/2018: EF 60 to 65%, mild concentric LVH, mild peak/mean 23/12 mmHg, dilated sinus of Valsalva 4.2 cm, normal ascending aorta
Echo 07/28/2024: EF 45%, global hypokinesis, moderate peak/mean 33/22 mmHg and SOFI 1.1 cm SQ, trace aortic regurgitation, mildly dilated aortic root, sinus of Valsalva 4.2 cm, sinotubular junction 2.7 cm, ascending aorta 3.5 cm and aortic arch not
well-visualized, compared to echo 05/2017 the AAS has increased from mild to moderate and EF is now down to 45%
Plan:
-Troponin peaked at 0.142 and will manage it as an NSTEMI given CP on admission and new ICM.
-Patient had PCI as outlined above. He will complete 1 week of aspirin, Plavix and Eliquis therapy. Starting on 08/06/24 he will eliminate aspirin and continue with Plavix and Eliquis alone for the next year
-New to Toprol XL 25 mg daily
-LDL 93 and patient is new to atorvastatin 40 mg daily
-Cardiac rehab consulted and he is scheduled for his first session on 08/14/2024
-Patient also with new A-fib and RVR on admission that spontaneously converted on the night of 07/29/2024 and he remains in SR on 07/30/2024
-New to Toprol-XL
-New to Eliquis 5 mg BID. Appreciate help of CM on checking cost which is estimated to be $2500 a year, we discussed transitioning to warfarin which she tolerated in the past when he had cavernous sinus thrombosis back in 2019, but he wants to stay
on a DOAC. If Xarelto goes generic after a year he would be interested in transitioning
-Outpatient dose of amlodipine has been stopped in favor of Toprol-XL. We discussed that if patient recurs with A-fib he would be interested in AAD or ablation, but for now we will await recurrence.
-HgbA1c elevated at 6.1% consistent with prediabetes. Patient indicates efforts to follow through with cardiac rehab including updating his diet. Will follow-up on labs as an outpatient.
-Consider adding SGLT2 as an outpatient pending clinical course.
-Stable for D/C
HPI: Patient came to ER today with complaints of a right sided chest pressure and was found to be in new A-fib prompting admission and cardiology consultation. Patient recalls that on Sunday he was lifting bags of sidewalk salt and started
with a fingertip sized area of chest pain on the right side, he had never had pain like this before. The pain improved, but recurred the following day while at rest. Overall he felt unusually fatigued and had SMITH walking around his home that was
new and different. No edema or bloating. No palpitations. In the ER patient was found to be in A-fib with RVR which is a new diagnosis for him. He has been on warfarin before, but this was for cavernous sinus thrombosis that was discovered when
he presented with a 6th nerve palsy in 2019. At that time they felt that possibly a broken tooth had caused the thrombosis. Patient was on warfarin for at least a year, but no longer taking OAC. No adverse bleeding events while on warfarin.
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
Subjective
Date of Service: July 30, 2024
He feels markedly better compared to admission
Objective
Labs:
07/30/24 04:20
07/30/24 04:20
Labs
Hgb 13.4 g/dL (13.0-18.0) 07/30/24 04:20
Hct 39.0 % (39.0-52.0) 07/30/24 04:20
Plt Count 167 10^3/uL (130-400) 07/30/24 04:20
APTT Cancelled 07/30/24 11:30
Sodium 136 mmol/L (135-145) 07/30/24 04:20
Potassium 4.4 mmol/L (3.5-5.1) 07/30/24 04:20
BUN 16 mg/dl (9-20) 07/30/24 04:20
Creatinine 0.8 mg/dL (0.7-1.3) 07/30/24 04:20
Glucose 117 mg/dl (70-99) H 07/30/24 04:20
Troponins
07/28/24 07/28/24 07/28/24
12:03 17:04 20:28
Troponin I 0.098 H* 0.126 H* D 0.126 H*
07/28/24 07/29/24
23:38 03:00
Troponin I 0.142 H* 0.129 H*
Vital Signs and I&O:
Vital Signs
Temp Pulse Resp BP Pulse Ox
98.2 F 83 20 125/80 97
07/30/24 11:22 07/30/24 12:00 07/30/24 11:22 07/30/24 11:22 07/30/24 11:22
Vital Signs
Temp Pulse Resp BP Pulse Ox
98.2 F 83 20 125/80 97
07/30/24 11:22 07/30/24 12:00 07/30/24 11:22 07/30/24 11:22 07/30/24 11:22
Intake & Output
07/28/24 07/29/24 07/30/24 07/31/24
06:59 06:59 06:59 06:59
Intake Total 400 / 400 882 / 882
Balance 400 / 400 882 / 882
Physical Exam
Physical Exam
GEN: NAD. AAOx3
HEENT: MMM
LUNGS: RA. No wheeze
CV: SR on tele.
ABD: ND
EXT: No edema B/L
NEURO: Gross non-focal
SKIN: No rash
--- NOTE | 2024-07-30 14:10 | W.DCSUMMARY ---
Discharge Summary
Discharge Data
Date of Admission: 07/28/24
Date of Discharge: 07/30/24
-
Pending Results: No
Hospital Course
69 -year-old male past medical history of hypertension, prediabetes, alcohol usage who is presenting with complaint of right-sided chest pain. Patient was found to be new onset of atrial fibrillation. Patient was also found to NSTEMI. Patient was
started on Cardizem infusion. Patient was on a heparin infusion. Troponin continued uptrend. Patient underwent cardiac catheterization where underwent AJ to OM1. Patient was on aspirin and Plavix. Patient converted to normal sinus rhythm.
Cardizem and heparin was discontinued. Patient was started on Eliquis and Toprol. Patient will continue aspirin Plavix and Eliquis for 1 week and then discontinue aspirin continue Plavix and Eliquis. Discussed with cardiology plan would be to
further uptitrate goal-directed medical therapy as outpatient including LOIDA or ARB and SGLT2 inhibitor. Norvasc was discontinued for hypertension as started on Toprol and BP was well controlled. Patient was ambulating without any chest pain or
difficulty.
Discharge Plan
-
Patient Disposition: Home (Routine Discharge)
Discharge Diagnosis/Procedures: NSTEMI
Angioplasty with stent to OM x 1 (07/29)
New onset of Afib
Condition: Good
Diet: Low Fat and Low Sodium
Activity: Other activity
Driving Restrictions: No driving for 24 hours
Bathing Restrictions: OK to Shower
Other Services: Cardiac Rehab
Stand Alone Forms: DC Instructions- Cath/EP Lab
Referrals:
[facility] [Outside] - 08/14/24 9:00 am
Marcia Penaloza PA-C [Specified Professional Personl] - 08/12/24 12:40 pm
Nasim Card MD [Family Provider] - in less than 1 week
Additional Discharge Medication Instructions: -You will be on Aspirin, Plavix and Eliquis for 1 week, then STOP ASPIRIN on 08/06/24
-After a year of Plavix and Eliquis therapy we will transition Plavix to aspirin alone and depending on generic availability and cost we can transition Eliquis to Xarelto. We will talk about these changes as we get closer to the 1 year yuly.
-STOP taking your outpatient dose of amlodipine (Norvasc)
-Start taking Toprol-XL (metoprolol succinate) 25 mg once a day
Prescriptions:
New
Eliquis 5 mg Tablet
5 mg PO BID Qty: 60 11RF
atorvastatin 40 mg Tablet
40 mg PO QPM Qty: 30 11RF
clopidogrel 75 mg Tablet
75 mg PO DAILY Qty: 30 11RF
metoprolol succinate 25 mg Tablet Extended Release 24 Hr
25 mg PO DAILY Qty: 30 11RF
aspirin 81 mg Tablet,Chewable
81 mg PO DAILY Qty: 6 0RF
Continued
albuterol sulfate 90 mcg/actuation HFA aerosol inhaler
2 puff INHALATION Q4HPRN PRN (Reason: cough, shortness of breath)
Discontinued
amlodipine 5 mg tablet
5 mg PO DAILY
Discharge Orders:
Discharge Patient (As Directed); Ordered 07/30/24
Ordered By: Allen Cornelius
Care Plan Goals
Care Plan Goals:
Problem: Readiness for enhanced knowledge related to diagnosis and treatment plan
Goal: Understand your diagnosis and treatment plan needs, including medications if applicable.
Instructions: Know your diagnosis, underlying causes and treatment plan options, including medications if applicable. Consult with your health care team to learn about your diagnosis and treatment plan, including medications if applicable.
Discharge Date and Time
Discharge Date/Time: 07/30/24 15:12
Print Language: PALAUAN
== END 2024-07-30 15:12 | disposition home or self-care (01) | DRG 321 ==
LOC: IVU 15:31
PROVIDERS: Internal Medicine Interventional Cardiology; Physician Assistant Medical; Registered Nurse; ADMITTING PHYSICIAN Hospitalist; ATTENDING PHYSICIAN Hospitalist; CONSULT PHYSICIAN Internal Medicine Cardiovascular Disease; EMERGENCY PHYSICIAN Emergency Medicine; FAMILY PHYSICIAN Family Medicine
PROC: 027034Z Dilation of Coronary Artery, One Artery with Drug-eluting Intraluminal Device, Percutaneous Approach (ICD-10-PCS; 2024-07-29)
PROC: B240ZZ3 Ultrasonography of Single Coronary Artery, Intravascular (ICD-10-PCS; 2024-07-29)
PROC: 4A023N7 Measurement of Cardiac Sampling and Pressure, Left Heart, Percutaneous Approach (ICD-10-PCS; 2024-07-29)
PROC: B2111ZZ Fluoroscopy of Multiple Coronary Arteries using Low Osmolar Contrast (ICD-10-PCS; 2024-07-29)
DX: I21.4 Non-ST elevation (NSTEMI) myocardial infarction (principal); I50.31 Acute diastolic (congestive) heart failure; I35.0 Nonrheumatic aortic (valve) stenosis; I48.91 Unspecified atrial fibrillation; I25.10 Atherosclerotic heart disease of native coronary artery without angina pectoris; I10 Essential (primary) hypertension; F17.210 Nicotine dependence, cigarettes, uncomplicated; I25.5 Ischemic cardiomyopathy; Z79.02 Long term (current) use of antithrombotics/antiplatelets
CPT/HCPCS: 71046; 76937; 80048; 80053; 80061; 83036; 83735; 83880; 84443; 84484; 85025; 85027; 85347; 85379; 85730; 92978; 93005; 93306; 93454; 93458; 96365; 96366; 96375; 99152; 99153; 99291; C1725; C1753; C1769; C1874; C1887; C1894; Q9950

== ENCOUNTER 2024-08-03 07:29 | Emergency (ER) | payer OTHER, SELFPAY ==
[2024-08-03] VITALS (9 sets, daily range): BP systolic 129–165; BP diastolic 78–94; BMI 33.0
--- NOTE | 2024-08-03 08:08 | ED.GENMED ---
History of Present Illness
General
Chief Complaint: Chest Pain
Source: patient, records and spouse
Time Seen by Provider: 08/03/24 07:52
History of Present Illness
History of Present Illness:
69-year-old male with a past medical history of newly diagnosed atrial fibrillation, CAD status post coronary stenting 1 week ago, hypertension, hyperlipidemia, GERD presenting to the emergency department for evaluation after feeling 'off' this
morning and an abnormal sensation in his chest but by the time he presented to the ER and my evaluation symptoms seem to be resolved. Patient was admitted to this facility last week where he was diagnosed with a new onset A-fib and an NSTEMI,
status post coronary stenting, discharged home on Eliquis, dual action platelet therapy, metoprolol and a statin which she reports good compliance with. Patient states he has not smoked a cigarette in 5 weeks nor has he drank any alcohol during
this time as well. Patient denies any fevers, chills, rigors, current chest pain, shortness of breath, palpitations or any other concerns.
Past History
Past History
ED Past Medical History: Arrthythmia, CAD, GERD, HTN, Hypercholesterolemia, Valvular disease and Other (Eczema)
ED Past Surgical History: Cardiac, Cholecystectomy and Other (Gynecomastia surgery)
Social History
Tobacco: Smoker
Alcohol: Occasional
Drug: None
Personal:
Living: with family (With girlfriend)
Review of Systems
Review of Systems
All Other Systems: ROS reviewed and negative except as documented in HPI and ROS
Phy Exam
Physical Exam
Physical Exam:
GENERAL: Alert , in no apparent distress
HEAD: Normocephalic atraumatic
EYE: Clear conjunctiva
NECK: Supple
ENT: mmm.
CARDIAC: Regular rate and rhythm, faint systolic murmur at the right second intercostal space.
LUNGS: Clear breath sounds bilaterally, no acute respiratory distress, no wheezes/rales/rhonchi
ABDOMEN: Soft, without focal tenderness, no r/g, no cvat
NEUROLOGICAL: Alert and oriented
SKIN: Warm and dry, skin intact.
MUSCULOSKELETAL: well perfused.
PSYCH: Normal and appropriate interaction.
Scores
Heart Failure Risk
Heart Failure Risk Score: Not Applicable
Heart Score for Chest Pain Patients
STEMI patient?: No
History: Slightly or Non-Suspicious
ECG: Normal
Age: >/= 65 years
Risk Factors: >/= 3 Risk Factors or History of CAD
Troponin: </= Normal Limit
Heart Score for Chest Pain Patients: 4
Heart Score Risk: 20.3% MACE over next 6 weeks
Withdrawal Assessment of Alcohol
Withdrawal Assessment Completed?: Not applicable
Course
Orders/Labs/Results
Orders:
Orders
08/03/24 07:37
Electrocardiogram (*1) Urgent
Reason for Study: Chest Pain
EKG- Treatment ONCE
08/03/24 08:06
Apixaban [Eliquis] 5 mg PO NOW STA
Metoprolol Xl [Toprol Xl] 25 mg PO NOW STA
08/03/24 08:11
Complete Blood Count/With Diff Urgent
Comprehensive Metabolic Panel Urgent
Magnesium Urgent
Troponin I Urgent
08/03/24 09:18
Aspirin Chewable [Low Strength Aspirin] 81 mg PO NOW STA
Atorvastatin [Lipitor] 40 mg PO NOW STA
Clopidogrel Bisulfate [Plavix] 75 mg PO NOW STA
08/03/24 10:55
Troponin I Urgent
Abnormal Lab Results
08/03/24 08/03/24
08:11 10:55
Absolute Monos (auto) 1.2 H 10^3/uL
(0.1-0.6)
Monocytes % 14.0 H %
(1.7-9.3)
BUN 21 H mg/dl
(9-20)
Glucose 113 H mg/dl
(70-99)
Troponin I 0.051 H* ng/ml 0.037 H* D ng/ml
08/03/24 08:11
08/03/24 08:11
Vital Signs
Initial and Last Documented VS:
Initial Vital Signs
Temp Pulse Resp BP Pulse Ox
98.2 F 74 16 158/94 98
08/03/24 07:43 08/03/24 07:43 08/03/24 07:43 08/03/24 07:43 08/03/24 07:43
Last Documented Vital Signs
Temp Pulse Resp BP Pulse Ox
97.6 F 82 20 165/94 96
08/03/24 12:17 08/03/24 12:17 08/03/24 12:17 08/03/24 12:17 08/03/24 12:17
MDM/Problems Addressed
Differential Diagnosis Includes:
Paroxysmal A-fib or other arrhythmia, ACS, given fleeting symptoms less concern for PE, dissection or pneumothorax, anxiety
MDM/Problems Addressed:
69-year-old male presenting back to the emergency department for reevaluation for an abnormal sensation in his chest that started earlier this morning, now resolved. Patient recently admitted with new onset A-fib and NSTEMI status post cardiac
stenting. BP is slightly elevated on arrival but patient is otherwise hemodynamically stable. He is in no acute distress and otherwise well-appearing. Will check labs, keep on telemetry. Patient did not take his medication prior to arrival to
the ER so we will give him his usual dose of Eliquis and metoprolol here.
Chronic conditions affecting care: CAD and Arrhythmia
*Pulse Oximetry
Patient hypoxic: no
*EKG
Heart Rate: 69
Rate: normal
Rhythm: sinus
[place]: normal axis
Ischemia: no ischemia
*Sole Scraper Interpretation
Rate: normal
Rhythm: sinus
*Critical Care Note
Total Time (30-74mins, 75-104mins- exclusive of procedures): Not Applicable
Comment
Comment:
Patient's initial troponin returned at 0.051. This is still down trended from when he was discharged last week. I do have a peak troponin ordered scheduled for 11 AM. Will discuss with cardiology pending these results.
Patient Management
Discussion with other providers: Dynamiter
Escalation/DeEscalation of care consider admission/obs:
Patient's repeat troponin is downtrending. He remains asymptomatic and in a normal sinus rhythm during duration of the ER workup. I discussed the case with on-call electric dolly operator, Dr. Vaz, who agrees with workup and will notify office to ensure
that patient has a close follow-up already scheduled. Patient and feel comfortable being discharged home. Patient is aware of return precautions to the emergency department.
ED Attending Note
-
Portions of this chart may have been created with voice recognition software.� Occasional wrong word or��sound alike� substitutions may have occurred due to the inherent limitations of voice recognition software.
Discharge Plan
Departure
Patient Disposition: Home (Routine Discharge)
Date of Disposition: 08/03/24
Time of Disposition: 12:04
Patient with high blood pressure during this ER visit?: Yes
Discharge Problem:
Chest pain
Instructions: Chest Pain DCA Follow Up
Prescriptions:
No Action
albuterol sulfate 90 mcg/actuation HFA aerosol inhaler
2 puff INHALATION Q4HPRN PRN (Reason: cough, shortness of breath)
Eliquis 5 mg Tablet
5 mg PO BID Qty: 60 11RF
atorvastatin 40 mg Tablet
40 mg PO QPM Qty: 30 11RF
clopidogrel 75 mg Tablet
75 mg PO DAILY Qty: 30 11RF
metoprolol succinate 25 mg Tablet Extended Release 24 Hr
25 mg PO DAILY Qty: 30 11RF
aspirin 81 mg Tablet,Chewable
81 mg PO DAILY Qty: 6 0RF
Referrals:
Nasim Card MD [Family Provider] -
Interventions
Interventions:
*Risk Screen - Suicide Last Done: 08/03/24 07:43
*General Assessment Last Done: 08/03/24 08:12
*Neglect/Abuse Screening Last Done: 08/03/24 07:43
*ED- Fall Risk Assessment Last Done: 08/03/24 08:12
*ED COVID-19 Vaccine History Last Done: 08/03/24 08:12
*Nursing Disposition Last Done: 08/03/24 12:17
ED- Cardiac Assessment Last Done: 08/03/24 08:12
Discharge Date and Time
Discharge Date/Time: 08/03/24 12:19
Print Language: HUNGARIAN
[2024-08-03] MEDS: ELIQUIS 5 MG PO (08:11)
[2024-08-03] MEDS: TOPROL XL 25 MG PO (08:11)
[2024-08-03 08:17] LABS: % Basophils 0.6 % (0-2); % Immature Granulocytes 0.4 % (0-0.5); % Lymphocytes 20.5 % (20.5-51.1); % Neutrophils 60.5 % (42.2-75.2); Absolute Basophils 0.1 10^3/uL (0-0.2); Absolute Eosinophils 0.3 10^3/uL (0-0.7); Absolute Lymphocytes 1.7 10^3/uL (1.2-3.4); Absolute Monocytes 1.2 10^3/uL (0.1-0.6); Hematocrit 42.7 % (39.0-52.0); Hemoglobin 14.8 g/dL (13.0-18.0); Mean Corp Hgb Conc. 34.7 g/dL (33.0-37.0); Mean Corpuscular Hgb 29.1 pg (27.0-31.0); Mean Corpuscular Volume 84.1 fL (80.0-94.0); Mean Platelet Volume 9.8 fL (7.4-10.4); Nucleated Red Blood Cells % 0 % (-); Platelet Count 226 10^3/uL (130-400); Red Blood Cell Count 5.08 10^6/uL (4.70-6.10); Red Cell Dist. Width 13.2 % (11.5-14.5); White Blood Cell Count 8.3 10^3/uL (4.8-10.8)
[2024-08-03 08:32] LABS: ALT (SGPT) 28 U/L (0-50); AST (SGOT) 21 U/L (17-59); Albumin 3.6 g/dl (3.5-5.0); Alkaline Phosphatase 89 U/L (38-126); Blood Urea Nitrogen 21 mg/dl (9-20); Calcium 9.1 mg/dl (8.4-10.2); Carbon Dioxide 26 mmol/L (22-30); Chloride 105 mmol/L (98-107); Estimated Creatinine Clearance 86 ml/min; Glucose 113 mg/dl (70-99); Magnesium 2.3 mg/dl (1.6-2.3); Potassium 4.6 mmol/L (3.5-5.1); Sodium 137 mmol/L (135-145); Total Bilirubin 0.7 mg/dl (0.2-1.3); Total Protein 6.6 g/dl (6.3-8.2); eGFR > 60.00
[2024-08-03 08:43] LABS: Troponin I 0.051 ng/ml
[2024-08-03] MEDS: PLAVIX 75 MG PO (10:05)
[2024-08-03] MEDS: LOW STRENGTH ASPIRIN 81 MG PO (10:05)
[2024-08-03 11:32] LABS: Troponin I 0.037 ng/ml
== END 2024-08-03 12:19 | disposition home or self-care (01) ==
LOC: EMR 07:29
PROVIDERS: Physician Assistant Medical; EMERGENCY PHYSICIAN Emergency Medicine; FAMILY PHYSICIAN Family Medicine
DX: R07.9 Chest pain, unspecified (principal); I25.10 Atherosclerotic heart disease of native coronary artery without angina pectoris; E78.00 Pure hypercholesterolemia, unspecified; I10 Essential (primary) hypertension; I48.91 Unspecified atrial fibrillation; K21.9 Gastro-esophageal reflux disease without esophagitis; Z95.5 Presence of coronary angioplasty implant and graft; F17.200 Nicotine dependence, unspecified, uncomplicated; Z90.49 Acquired absence of other specified parts of digestive tract; Z79.01 Long term (current) use of anticoagulants; Z79.899 Other long term (current) drug therapy
CPT/HCPCS: 99284; 80053; 83735; 84484; 85025; 93005

== ENCOUNTER 2024-08-17 08:33 | Emergency (ER) | payer OTHER, SELFPAY ==
[2024-08-17 08:37] VITALS: BP 169/97
[2024-08-17 08:39] VITALS: BP 169/93
--- NOTE | 2024-08-17 08:52 | ED.GENMED ---
History of Present Illness
General
Chief Complaint: Blood Pressure Problem
Source: patient and spouse
Exam Limitations: none
Time Seen by Provider: 08/17/24 08:51
Nursing documentation reviewed up to this point in time: agreed with
History of Present Illness
History of Present Illness:
69-year-old male presents emergency department because his blood pressure was high on blood pressure machine today. States he felt lightheaded. He denies any headache or chest pain.
Past History
Past History
ED Past Medical History: Arrthythmia, CAD, GERD, HTN, Hypercholesterolemia, Valvular disease and Other (Eczema)
ED Past Surgical History: Cardiac, Cholecystectomy and Other (Gynecomastia surgery)
Social History
Tobacco: Smoker
Alcohol: Occasional
Drug: None
Personal:
Living: with family (With girlfriend)
Review of Systems
Review of Systems
Allergies reviewed?: Yes
All Other Systems: Not applicable
Constitutional: Reports no symptoms
EENT: Reports no symptoms
Respiratory: Reports no symptoms; Denies trouble breathing
Cardiac: Reports no symptoms; Denies chest pain
ABD/GI: Reports no symptoms
: Reports no symptoms
Musculoskeletal: Reports no symptoms
Skin: Reports no symptoms
Neurological: Reports no symptoms
Endocrine: Reports no symptoms
Hematologic/Lymphatic: Reports no symptoms
Psychiatric: Reports no symptoms
Phy Exam
Physical Exam
Physical Exam:
Physical Exam
General: no apparent distress, not acutely ill
Neck: supple. no meningeal signs. normal posterior pharynx
Heart: s1/s2 regular rate and rhythm, no murmur. equal radial
pulses.
HEENT: Pupils equal round reactive to light, EOMI
Lungs: no acute respiratory distress. clear bilaterally
Abdomen: normal bowel sounds. not tender. no CVAT
Neuro: alert and oriented. no focal neurological deficits cranial nerves II through XII intact
Skin: no rash
Psychiatric: well kept. interactive and cooperative
Extremities: no edema. no calf tenderness. negative homans. good distal pulses
Course
Orders/Labs/Results
Orders:
Orders
08/17/24 08:41
Electrocardiogram (*1) Urgent
Reason for Study: Hypertension, Benign
EKG- Treatment ONCE
08/17/24 09:29
Complete Blood Count/With Diff Urgent
Comprehensive Metabolic Panel Urgent
Abnormal Lab Results
08/17/24
09:29
Absolute Monos (auto) 0.7 H 10^3/uL
(0.1-0.6)
Lymphocytes % 18.6 L %
(20.5-51.1)
Monocytes % 10.6 H %
(1.7-9.3)
08/17/24 09:29
08/17/24 09:29
Vital Signs
Initial and Last Documented VS:
Initial Vital Signs
Temp Pulse Resp BP Pulse Ox
98.1 F 66 16 169/97 96
08/17/24 08:37 08/17/24 08:37 08/17/24 08:37 08/17/24 08:37 08/17/24 08:37
Last Documented Vital Signs
Temp Pulse Resp BP Pulse Ox
98.1 F 66 16 143/85 97
08/17/24 08:37 08/17/24 08:37 08/17/24 08:37 08/17/24 09:20 08/17/24 09:30
MDM/Problems Addressed
Differential Diagnosis Includes:
Electrolyte disturbance, hypertension
MDM/Problems Addressed:
69-year-old male with lightheadedness, mild hypertension. Stable for discharge. No neurologic deficits. Patient denies chest pain. Normal EKG. Follow-up with primary care
Chronic conditions affecting care: HTN and CAD
Acute Exacerbation and/or Progression of Chronic Illness: HTN
*Pulse Oximetry
Patient hypoxic: no
*EKG
Interpreted by ED Provider?: Yes
EKG Intrepretation Date: 08/17/24
EKG Intrepretation Time: 08:43
Interpretation: normal
Comparison EKG: no changes
Heart Rate: 62
Rate: normal
Rhythm: sinus
[place]: normal axis
Interval: normal interval
QRS Pattern: normal QRS
Ischemia: no ischemia
*Finance Teacher Interpretation
Rate: normal
Interpretation: normal
Heart Rate: 64
Rhythm: sinus
*Critical Care Note
Total Time (30-74mins, 75-104mins- exclusive of procedures): Not Applicable
Data Reviewed
Review of Other/Old Records Reveals: Operative Reports (Cardiac catheterization of July 2024)
Source: records
Patient Management
Social determinants of health affecting care: Living situation
Escalation/DeEscalation of care consider admission/obs:
Admit not indicated
ED Attending Note
-
Portions of this chart may have been created with voice recognition software.� Occasional wrong word or��sound alike� substitutions may have occurred due to the inherent limitations of voice recognition software.
Discharge Plan
Departure
Patient Disposition: Home (Routine Discharge)
Date of Disposition: 08/17/24
Time of Disposition: 10:08
Patient with high blood pressure during this ER visit?: Yes
Condition: Good
Discharge Problem:
Hypertension, Light-headed
Instructions: High Blood Pressure (DC), BLOOD PRESSURE
Prescriptions:
No Action
albuterol sulfate 90 mcg/actuation HFA aerosol inhaler
2 puff INHALATION Q4HPRN PRN (Reason: cough, shortness of breath)
Eliquis 5 mg Tablet
5 mg PO BID Qty: 60 11RF
atorvastatin 40 mg Tablet
40 mg PO QPM Qty: 30 11RF
clopidogrel 75 mg Tablet
75 mg PO DAILY Qty: 30 11RF
metoprolol succinate 25 mg Tablet Extended Release 24 Hr
25 mg PO DAILY Qty: 30 11RF
Referrals:
Nasim Card MD [Family Provider] - Call in 1-3 days for appt
Interventions
Interventions:
*Risk Screen - Suicide Last Done: 08/17/24 08:37
*General Assessment Last Done: 08/17/24 09:18
*Neglect/Abuse Screening Last Done: 08/17/24 08:37
*ED COVID-19 Vaccine History Last Done: 08/17/24 09:18
Discharge Date and Time
Print Language: SOMALI
[2024-08-17 09:17] VITALS: BMI 38.1
[2024-08-17 09:20] VITALS: BP 143/85
[2024-08-17 09:39] VITALS: BP 151/95
[2024-08-17 09:42] LABS: % Basophils 0.9 % (0-2); % Eosinophils 4.9 % (0-6); % Immature Granulocytes 0.4 % (0-0.5); % Lymphocytes 18.6 % (20.5-51.1); % Monocytes 10.6 % (1.7-9.3); % Neutrophils 64.6 % (42.2-75.2); Absolute Basophils 0.1 10^3/uL (0-0.2); Absolute Eosinophils 0.3 10^3/uL (0-0.7); Absolute Lymphocytes 1.3 10^3/uL (1.2-3.4); Absolute Monocytes 0.7 10^3/uL (0.1-0.6); Absolute Neutrophils 4.5 10^3/uL (1.4-6.5); Hematocrit 44.3 % (39.0-52.0); Hemoglobin 15.2 g/dL (13.0-18.0); Mean Corp Hgb Conc. 34.3 g/dL (33.0-37.0); Mean Corpuscular Hgb 28.8 pg (27.0-31.0); Mean Corpuscular Volume 83.9 fL (80.0-94.0); Mean Platelet Volume 9.3 fL (7.4-10.4); Nucleated Red Blood Cells % 0 % (-); Platelet Count 247 10^3/uL (130-400); Red Blood Cell Count 5.28 10^6/uL (4.70-6.10); Red Cell Dist. Width 12.7 % (11.5-14.5); White Blood Cell Count 6.9 10^3/uL (4.8-10.8)
[2024-08-17 09:53] LABS: ALT (SGPT) 22 U/L (0-50); AST (SGOT) 20 U/L (17-59); Albumin 3.8 g/dl (3.5-5.0); Alkaline Phosphatase 75 U/L (38-126); Blood Urea Nitrogen 18 mg/dl (9-20); Calcium 9.6 mg/dl (8.4-10.2); Carbon Dioxide 28 mmol/L (22-30); Chloride 104 mmol/L (98-107); Estimated Creatinine Clearance 89 ml/min; Glucose 99 mg/dl (70-99); Potassium 4.4 mmol/L (3.5-5.1); Sodium 139 mmol/L (135-145); Total Bilirubin 0.6 mg/dl (0.2-1.3); Total Protein 6.7 g/dl (6.3-8.2); eGFR > 60.00
[2024-08-17 10:00] VITALS: BP 148/87
== END 2024-08-17 10:45 | disposition home or self-care (01) ==
LOC: EMR 08:33
PROVIDERS: EMERGENCY PHYSICIAN Emergency Medicine; FAMILY PHYSICIAN Family Medicine
DX: R42 Dizziness and giddiness (principal); I10 Essential (primary) hypertension; I25.10 Atherosclerotic heart disease of native coronary artery without angina pectoris; E78.00 Pure hypercholesterolemia, unspecified; K21.9 Gastro-esophageal reflux disease without esophagitis; F17.200 Nicotine dependence, unspecified, uncomplicated; I25.2 Old myocardial infarction; Z79.01 Long term (current) use of anticoagulants; Z90.49 Acquired absence of other specified parts of digestive tract; Z88.5 Allergy status to narcotic agent; Z95.5 Presence of coronary angioplasty implant and graft
CPT/HCPCS: 99283; 80053; 85025; 93005

== ENCOUNTER → 2024-08-29 14:31 | Outpatient (REF) | payer OTHER, SELFPAY ==
--- NOTE | 2024-08-29 15:23 | CARDSERVLU ---
Echocardiogram with Lumason completed after protocol screening completed. Allergies verified.
Patent IV site: 22g IV inserted in Right hand - 1st attempt
IV site flushed with 0.9% NaCl pre and post administration.
Diluted bolus method utilized to enhance visualization of ventricular cavazos.
Total volume given: 6 mL
Patient tolerated all procedures well without complications.
IV d/c'd and bandage applied after pressure held
== END ==
LOC: RCS 14:31
PROVIDERS: ATTENDING PHYSICIAN Physician Assistant Medical; FAMILY PHYSICIAN Family Medicine
DX: I21.4 Non-ST elevation (NSTEMI) myocardial infarction (principal); I25.5 Ischemic cardiomyopathy
CPT/HCPCS: 93307; Q9957

== ENCOUNTER 2024-09-03 08:56 | Outpatient (RCR) | payer OTHER, SELFPAY | END 2024-09-03 23:59 | disposition home or self-care (01) | LOC: CRHB 08:56 | PROVIDERS: ATTENDING PHYSICIAN Internal Medicine Cardiovascular Disease | DX: I21.4 Non-ST elevation (NSTEMI) myocardial infarction (principal); I25.2 Old myocardial infarction (principal); Z95.5 Presence of coronary angioplasty implant and graft | CPT/HCPCS: G0422; G0423 ==

== ENCOUNTER 2024-10-03 09:44 | Outpatient (RCR) | payer OTHER, SELFPAY | END 2024-10-03 23:59 | disposition home or self-care (01) | LOC: CRHB 09:44 | PROVIDERS: ATTENDING PHYSICIAN Internal Medicine Cardiovascular Disease | DX: I25.10 Atherosclerotic heart disease of native coronary artery without angina pectoris (principal); I21.4 Non-ST elevation (NSTEMI) myocardial infarction (principal); Z95.5 Presence of coronary angioplasty implant and graft; I25.2 Old myocardial infarction; I25.5 Ischemic cardiomyopathy | CPT/HCPCS: G0422; G0423 ==

== ENCOUNTER → 2024-10-07 07:43 | Outpatient (REF) | payer MEDICARE, SELFPAY ==
[2024-10-07 10:48] LABS: ALT (SGPT) 21 U/L (0-50); AST (SGOT) 20 U/L (17-59); Albumin 4.4 g/dl (3.5-5.0); Alkaline Phosphatase 83 U/L (38-126); Blood Urea Nitrogen 20 mg/dl (9-20); Calcium 9.3 mg/dl (8.4-10.2); Carbon Dioxide 23 mmol/L (22-30); Chloride 106 mmol/L (98-107); Glucose 102 mg/dl (70-99); HDL Cholesterol 58 mg/dl; LDL Cholesterol, Calculated 63 mg/dl; Potassium 4.7 mmol/L (3.5-5.1); Sodium 140 mmol/L (135-145); Total Bilirubin 0.9 mg/dl (0.2-1.3); Total Cholesterol 135 mg/dl (50-199); Total Protein 7.2 g/dl (6.3-8.2); Triglyceride 71 mg/dl (10-149); Very Low Density Lipoprotein 14 mg/dl (0-30); eGFR > 60.00
== END ==
LOC: REG 07:43
PROVIDERS: ATTENDING PHYSICIAN Internal Medicine Cardiovascular Disease; FAMILY PHYSICIAN Family Medicine
DX: I10 Essential (primary) hypertension (principal); E78.2 Mixed hyperlipidemia
CPT/HCPCS: 36415; 80053; 80061

== ENCOUNTER 2024-11-03 09:00 | Outpatient (RCR) | payer OTHER, SELFPAY | END 2024-11-03 23:59 | disposition home or self-care (01) | LOC: CRHB 09:00 | PROVIDERS: ATTENDING PHYSICIAN Internal Medicine Cardiovascular Disease | DX: I25.10 Atherosclerotic heart disease of native coronary artery without angina pectoris (principal); Z95.5 Presence of coronary angioplasty implant and graft; I25.2 Old myocardial infarction; I25.5 Ischemic cardiomyopathy; I48.91 Unspecified atrial fibrillation; E78.5 Hyperlipidemia, unspecified; I08.0 Rheumatic disorders of both mitral and aortic valves | CPT/HCPCS: G0422; G0423 ==

== ENCOUNTER 2024-11-10 08:45 | Outpatient (RCR) | payer OTHER, SELFPAY | END 2024-11-12 17:58 | disposition home or self-care (01) | LOC: CRHB 08:45 | PROVIDERS: ATTENDING PHYSICIAN Internal Medicine Cardiovascular Disease; FAMILY PHYSICIAN Family Medicine | DX: I25.10 Atherosclerotic heart disease of native coronary artery without angina pectoris (principal); I21.4 Non-ST elevation (NSTEMI) myocardial infarction (principal); Z95.5 Presence of coronary angioplasty implant and graft; I25.5 Ischemic cardiomyopathy; I25.2 Old myocardial infarction | CPT/HCPCS: G0422; G0423 ==

== ENCOUNTER 2024-12-07 18:28 | Emergency (ER) | payer OTHER, SELFPAY ==
[2024-12-07 18:31] VITALS: BP 144/86
--- NOTE | 2024-12-07 19:40 | ED.GENMED ---
History of Present Illness
General
Chief Complaint: Skin Surface Trauma
Source: patient
Exam Limitations: none
Time Seen by Provider: 12/07/24 19:06
Nursing documentation reviewed up to this point in time: agreed with
History of Present Illness
History of Present Illness:
Note:
CHIEF COMPLAINT(S)
Traumatic injury to the foot resulting in a missing toenail.
HISTORY OF PRESENT ILLNESS
The patient is a 69-year-old male with pmh of afib on [facility], who presented with a traumatic injury to the foot after sustaining a mishap in his driveway. The incident occurred when the patient attempted to converse with a neighbor, inadvertently
jamming his foot against a paper wall, leading to the detachment of a toenail. The patient was barefoot at the time of the incident. He reported significant bleeding at the scene and expressed uncertainty about the current location of the toenail,
speculating that it may remain in the driveway or somewhere in the vicinity of his home. The bleeding was described as profuse initially, but it has since subsided. The patient expressed concern about potential pain; however, he denies experiencing
significant discomfort at the time of evaluation. He is an active individual, noted to walk approximately three miles each day for cardiac health maintenance post-heart attack. The primary concern is to control bleeding and ensure proper healing of
the nail bed to facilitate continued ambulation.
PHYSICAL EXAM
Nursing notes reviewed and vital signs reviewed.
General: well appearing male, in no acute distress.
Heent: nc/at. eomi
Lungs: cta.
Heart: tachycardic. no mumur.
Abd: soft and nontender
Neuro: aao x 3. no focal neurological deficit.
Ext: no edema
Psych: pleasant and cooperative
Musculoskeletal:
LEft foot-- Toe nail avulsed from left 3rd toe; brisk hemorrhage noted initially to nail bed with no evidence of laceration; however, bleeding has since subsided. No observable foreign bodies. No report of significant pain upon examination.
PLAN
- Control bleeding by applying special dressings designed to facilitate hemostasis.
- If initial measures do not suffice, consider local application of epinephrine to induce vasoconstriction and control further bleeding.
- Advise the patient to avoid consistent bearing weight on the affected foot for the next day or two until a stable clot forms. Recommend using sneakers for protection and to abstain from walking barefoot.
- Follow-up to reassess the injury and confirm appropriate healing, potentially at a primary care office if needed.
DIFFERENTIAL DIAGNOSIS
The Differential Diagnosis includes, in no particular order and is not limited to:
1. Traumatic onycholysis
2. Nail bed laceration
3. Subungual hematoma
4. Soft tissue injury to toe
5. Fracture of distal phalanx
6. Skin laceration with foreign body
7. Simple laceration without foreign body
8. Crush injury to toe
9. Infection due to open wound
10. Contusion of foot without fracture
CHART REVIEW
-Reviewed discharge summary from 07/30/24 patient seen for right sided chest pain was found to be in new onset afib, NSTEMI
MDM/DISCHARGE
The patient is a 69-year-old male with pmh of afib on [facility], who presented with a traumatic injury to the foot after sustaining a mishap in his driveway. He jammed his foot. Denies any other injuries. The left 3rd toe nail was avulsed. No
evidence of nail bed laceration. Bacitracin applied and bleeding well controlled with Surgifoam and pressure dressing. Patient stable for discharge.
Past History
Past History
ED Past Medical History: Arrthythmia, CAD, GERD, HTN, Hypercholesterolemia, Valvular disease and Other (Eczema)
ED Past Surgical History: Cardiac, Cholecystectomy and Other (Gynecomastia surgery)
Social History
Tobacco: Smoker
Alcohol: Occasional
Drug: None
Personal:
Living: with family (With girlfriend)
Review of Systems
Review of Systems
All Other Systems: ROS reviewed and negative except as documented in HPI and ROS
Phy Exam
Physical Exam
Physical Exam:
see hpi
Course
Orders/Labs/Results
Orders:
Orders
12/07/24 19:38
Tetanus/Diphth/Acelpertussis [Adacel] 0.5 ml IM .ONCE ONE
12/07/24 20:28
Cast Shoe Left-Treatment ONCE
Vital Signs
Initial and Last Documented VS:
Initial Vital Signs
Temp Pulse Resp BP Pulse Ox
98.5 F 71 18 144/86 97
12/07/24 18:31 12/07/24 18:31 12/07/24 18:31 12/07/24 18:31 12/07/24 18:31
Last Documented Vital Signs
Temp Pulse Resp BP Pulse Ox
98.5 F 67 16 141/86 98
12/07/24 18:31 12/07/24 20:45 12/07/24 20:45 12/07/24 20:45 12/07/24 20:45
*Pulse Oximetry
SaO2: 97
Oxygen Mode of Delivery: Room air
Patient hypoxic: no
*Critical Care Note
Total Time (30-74mins, 75-104mins- exclusive of procedures): Not Applicable
ED Attending Note
-
Portions of this chart may have been created with voice recognition software.� Occasional wrong word or��sound alike� substitutions may have occurred due to the inherent limitations of voice recognition software.
Discharge Plan
Departure
Patient Disposition: Home (Routine Discharge)
Date of Disposition: 12/07/24
Time of Disposition: 20:31
Patient with high blood pressure during this ER visit?: Yes
Condition: Good
Discharge Problem:
Hemorrhage of nail
Instructions: Wound Care (DC), Nail Avulsion, BLOOD PRESSURE
Prescriptions:
No Action
albuterol sulfate 90 mcg/actuation HFA aerosol inhaler
2 puff INHALATION Q4HPRN PRN (Reason: cough, shortness of breath)
Eliquis 5 mg Tablet
5 mg PO BID Qty: 60 11RF
atorvastatin 40 mg Tablet
40 mg PO QPM Qty: 30 11RF
clopidogrel 75 mg Tablet
75 mg PO DAILY Qty: 30 11RF
metoprolol succinate 25 mg Tablet Extended Release 24 Hr
25 mg PO DAILY Qty: 30 11RF
Referrals:
Nasim Card MD [Family Provider, [facility]]
Activity Restrictions/Additional Instructions:
Please keep dressing in place and dry for 24 hours. After 24 hours, you can remove the dressing and apply nonadherent pad with Kerlix wrap or LOIDA wrap. Please apply bactrician Please wear closed toed shoes for 1 to 2 weeks. Please minimally
weight-bear tomorrow.
PLEASE RETURN TO THE EMERGENCY DEPARTMENT SHOULD YOU DEVELOP FEVERS OR CHILLS, PURULENT DRAINAGE, A RETURN OR WORSENING OF YOUR BLEEDING, ANY OTHER SIGNS OR SYMPTOMS WORRISOME TO YOU.
Interventions
Interventions:
*Risk Screen - Suicide Last Done: 12/07/24 19:18
*General Assessment Last Done: 12/07/24 19:18
*Neglect/Abuse Screening Last Done: 12/07/24 19:18
*ED- Fall Risk Assessment Last Done: 12/07/24 19:18
*ED COVID-19 Vaccine History Last Done: 12/07/24 19:18
*Nursing Disposition Last Done: 12/07/24 20:45
ED-Skin Assessment Last Done: 12/07/24 18:43
Discharge Date and Time
Discharge Date/Time: 12/07/24 20:45
Print Language: GRENADIAN
[2024-12-07] MEDS: ADACEL 0.5 ML IM (19:49)
[2024-12-07 20:45] VITALS: BP 141/86
== END 2024-12-07 20:45 | disposition home or self-care (01) ==
LOC: EMR 18:28
PROVIDERS: EMERGENCY PHYSICIAN Emergency Medicine; FAMILY PHYSICIAN Family Medicine
DX: L60.8 Other nail disorders (principal); I25.10 Atherosclerotic heart disease of native coronary artery without angina pectoris; I10 Essential (primary) hypertension; K21.9 Gastro-esophageal reflux disease without esophagitis; E78.00 Pure hypercholesterolemia, unspecified; I38 Endocarditis, valve unspecified; I48.91 Unspecified atrial fibrillation; L30.9 Dermatitis, unspecified; F17.200 Nicotine dependence, unspecified, uncomplicated; Z79.01 Long term (current) use of anticoagulants; Z90.49 Acquired absence of other specified parts of digestive tract
CPT/HCPCS: 99282; 90471; 90715

== ENCOUNTER 2024-12-08 07:01 | Emergency (ER) | payer OTHER, SELFPAY ==
[2024-12-08 07:10] VITALS: BP 150/85
--- NOTE | 2024-12-08 07:29 | ED.GENMED ---
History of Present Illness
General
Chief Complaint: Skin Surface Trauma
Time Seen by Provider: 12/08/24 07:14
History of Present Illness
History of Present Illness:
69-year-old male presents to the emergency department for evaluation of persistent bleeding from a wound to the left third toe, he struck it against a four slide operator and avulsed his nail. He is on Eliquis. Wound was cleaned and Gelfoam was applied
yesterday but bleeding continued overnight. His last dose of Eliquis was last night
Past History
Past History
ED Past Medical History: Arrthythmia, CAD, GERD, HTN, Hypercholesterolemia, Valvular disease and Other (Eczema)
ED Past Surgical History: Cardiac, Cholecystectomy and Other (Gynecomastia surgery)
Social History
Tobacco: Smoker
Alcohol: Occasional
Drug: None
Personal:
Living: with family (With girlfriend)
Review of Systems
Review of Systems
Allergies reviewed?: Yes
All Other Systems: ROS reviewed and negative except as documented in HPI and ROS
Phy Exam
Physical Exam
Physical Exam:
GEN: Well appearing, NAD, WDWN
HEENT: Oral mucosa moist, no scleral icterus
Cardiac: Regular rate
Lung: No respiratory distress, no tachypnea
MSK: No gross deformity or injuries
Skin: Good color, no pallor or jaundice, no rashes. Intact Gelfoam dressing to the left third toe dorsal aspect, no active bleeding noted
Neuro: AO x3, moves all extremities freely
Psych: Calm, cooperative
Course
Vital Signs
Initial and Last Documented VS:
Initial Vital Signs
Temp Pulse Resp BP Pulse Ox
98.2 F 65 16 150/85 98
12/08/24 07:10 12/08/24 07:10 12/08/24 07:10 12/08/24 07:10 12/08/24 07:10
Last Documented Vital Signs
Temp Pulse Resp BP Pulse Ox
98.2 F 65 16 150/85 98
12/08/24 07:10 12/08/24 07:10 12/08/24 07:10 12/08/24 07:10 12/08/24 07:31
MDM/Problems Addressed
MDM/Problems Addressed:
Dressing taken down and area cleansed, no active bleeding. Will maintain Gelfoam dressing in place and discussed supportive care. Will hold Eliquis for the next 48 hours
*Pulse Oximetry
SaO2: 98
Oxygen Mode of Delivery: Room air
Patient hypoxic: no
*Critical Care Note
Total Time (30-74mins, 75-104mins- exclusive of procedures): Not Applicable
ED Attending Note
-
Portions of this chart may have been created with voice recognition software.� Occasional wrong word or��sound alike� substitutions may have occurred due to the inherent limitations of voice recognition software.
Discharge Plan
Departure
Patient Disposition: Home (Routine Discharge)
Date of Disposition: 12/08/24
Time of Disposition: 07:30
Patient with high blood pressure during this ER visit?: No
Discharge Problem:
Avulsion of nail
Prescriptions:
No Action
albuterol sulfate 90 mcg/actuation HFA aerosol inhaler
2 puff INHALATION Q4HPRN PRN (Reason: cough, shortness of breath)
Eliquis 5 mg Tablet
5 mg PO BID Qty: 60 11RF
atorvastatin 40 mg Tablet
40 mg PO QPM Qty: 30 11RF
clopidogrel 75 mg Tablet
75 mg PO DAILY Qty: 30 11RF
metoprolol succinate 25 mg Tablet Extended Release 24 Hr
25 mg PO DAILY Qty: 30 11RF
Activity Restrictions/Additional Instructions:
Elevate and ice the toe to reduce pain and blood flow. Do not take your Eliquis for the next 4 doses, your next dose will be Sunday morning. If bleeding begins again, hold pressure directly on the toe for 10 to 15 minutes and then take down the
overlying dressing, if bleeding continues return to the ER at that point. Change the overlying bandage once every 24 hours. You may shower, however do not scrub the area as the Gelfoam is designed to absorb and begin to fall off in approximately 7
days
Interventions
Interventions:
*Risk Screen - Suicide Last Done: 12/08/24 07:10
*General Assessment Last Done: 12/08/24 07:32
*Neglect/Abuse Screening Last Done: 12/08/24 07:10
*ED- Fall Risk Assessment Last Done: 12/08/24 07:32
*ED COVID-19 Vaccine History Last Done: 12/08/24 07:32
ED-Skin Assessment Last Done: 12/08/24 07:22
Discharge Date and Time
Print Language: MAURITIAN
[2024-12-08 07:32] VITALS: BMI 36.2
--- NOTE | 2024-12-08 08:12 | EDRN ---
Discharge instructions given to patient by Kamlesh Zamora PA-C. Verbalized understanding.
== END 2024-12-08 08:14 | disposition home or self-care (01) ==
LOC: EMR 07:01
PROVIDERS: EMERGENCY PHYSICIAN Student in an Organized Health Care Education/Training Program; FAMILY PHYSICIAN Family Medicine
DX: S91.205A Unspecified open wound of left lesser toe(s) with damage to nail, initial encounter (principal); W22.09XA Striking against other stationary object, initial encounter; E78.00 Pure hypercholesterolemia, unspecified; I10 Essential (primary) hypertension; I25.10 Atherosclerotic heart disease of native coronary artery without angina pectoris; F17.200 Nicotine dependence, unspecified, uncomplicated; Z79.01 Long term (current) use of anticoagulants
CPT/HCPCS: 99282